=== PATIENT | male | born 1960 | race Caucasian/White ===

== ENCOUNTER 2024-10-19 16:27 | Inpatient (IN) | payer MEDICARE, SELFPAY ==
[2024-10-17 12:07] VITALS: BP 152/94
[2024-10-17 12:30] LABS: % Basophils 0.2 % (0-2); % Eosinophils 0.1 % (0-6); % Immature Granulocytes 0.3 % (0-0.5); % Lymphocytes 5.9 % (20.5-51.1); % Monocytes 5.1 % (1.7-9.3); % Neutrophils 88.4 % (42.2-75.2); Absolute Lymphocytes 0.5 10^3/uL (1.2-3.4); Absolute Monocytes 0.5 10^3/uL (0.1-0.6); Hematocrit 47.5 % (39.0-52.0); Hemoglobin 16.4 g/dL (13.0-18.0); Mean Corp Hgb Conc. 34.5 g/dL (33.0-37.0); Mean Corpuscular Volume 83.9 fL (80.0-94.0); Mean Platelet Volume 10.4 fL (7.4-10.4); Nucleated Red Blood Cells % 0 % (-); Platelet Count 306 10^3/uL (130-400); Red Blood Cell Count 5.66 10^6/uL (4.70-6.10); Red Cell Dist. Width 14.4 % (11.5-14.5); White Blood Cell Count 9.1 10^3/uL (4.8-10.8)
[2024-10-17 12:49] LABS: ALT (SGPT) 37 U/L (0-50); AST (SGOT) 38 U/L (17-59); Albumin 4.6 g/dl (3.5-5.0); Alkaline Phosphatase 82 U/L (38-126); Blood Urea Nitrogen 22 mg/dl (9-20); Calcium 8.8 mg/dl (8.4-10.2); Carbon Dioxide 15 mmol/L (22-30); Chloride 103 mmol/L (98-107); Glucose 164 mg/dl (70-99); Lipase 143 U/L (23-300); Potassium 3.9 mmol/L (3.5-5.1); Sodium 136 mmol/L (135-145); Total Protein 6.8 g/dl (6.3-8.2); eGFR > 60.00
--- NOTE | 2024-10-17 13:41 | ED.GENMED ---
History of Present Illness
<Colleen Flores PA-C - Last Filed: 10/17/24 17:41>
General
Chief Complaint: Abdominal Pain
Source: patient
Exam Limitations: none
Time Seen by Provider: 10/17/24 13:33
Nursing documentation reviewed up to this point in time: agreed with
History of Present Illness
History of Present Illness:
64-year-old male with a past medical history of diabetes, hypothyroid presents emergency department today with diffuse abdominal pain for the past 3 days. Patient reports that when it started 3 days ago, patient states that he had pain and so
severe he is never had anything like it before. He also had associated nausea and vomiting. He has had no fevers or chills. He has no past surgical abdominal history. He has specks of blood in his vomit yesterday. He states that sometimes the
pain will radiate into the chest he describes his pain as a heartburn. He is able to tolerate oral intake. Of note, he went to [place] for the symptoms and they did a CAT scan of the belly which was negative. They also ángel blood cultures which
came back positive and he was called back and to the hospital yesterday and he got blood redrawn and then was sent home again. Patient has not had any fevers or chills. He has had no diarrhea. He is a diabetic.
Review of Systems
<Colleen Flores PA-C - Last Filed: 10/17/24 17:41>
Review of Systems
All Other Systems: ROS reviewed and negative except as documented in HPI and ROS
Phy Exam
<Colleen Flores PA-C - Last Filed: 10/17/24 17:41>
Physical Exam
Physical Exam:
General: Patient appears uncomfortable secondary to pain
Skin: Warm and dry, no rashes or lesions
Head: Normocephalic, atraumatic
Eyes: Sclera non-icteric. EOMs intact. PERRLA.
Cardiac: Regular rate and rhythm, no murmurs
Peripheral Vascular: No lower extremity swelling or edema
Pulm: Normal respiratory effort, no wheezes, rales, or rhonchi
Abdomen: No abdominal tenderness to palpation, no palpable masses, no guarding
Neuro: CN II-XII intact, no focal neurologic deficits.
Psychiatric: Appropriate mood and affect.
Course
<Colleen Flores PA-C - Last Filed: 10/17/24 17:41>
Orders/Labs/Results
Orders:
Orders
10/17/24 12:17
Complete Blood Count/With Diff Urgent
Comprehensive Metabolic Panel Urgent
Lipase Urgent
10/17/24 13:57
CT Abd/pelvis W Iv Cont Urgent
Comment:
Reason For Exam: epigastric abdominal pain
0.9% Sodium Chloride 1000 ml [Nss] 1,000 ml IV BOLUS
Ketorolac [Toradol] 15 mg IV NOW STA
Ondansetron Injectable [Zofran] 4 mg IV NOW STA
10/17/24 13:58
Electrocardiogram (*1) Urgent
Reason for Study: Chest Pain
EKG- Treatment ONCE
10/17/24 14:25
Blood Culture Q30M
LUCY Source: Blood/Venous
Specimen Description:
Blood Culture Q30M
LUCY Source: Blood/Venous
Specimen Description:
10/17/24 14:29
Lactic Acid Urgent
Troponin I Urgent
Urinalysis Reflex To Culture Urgent
Date Specimen was Collected: 10/17/24
Time Specimen was Collected: 14:07
10/17/24 16:43
Admit/Transfer Patient As Directed
Co-Sign Provider:
Level of Care: Observation services
Assign to:: Medical/Surgical
Physician / Group: estela
Diagnosis: abdominal pain
PRN Pain Medication Management As Directed
May give lesser potent ordered pain med per pt: Yes
preference::
Protocol:: Medication orders for pain may be administered in a
manner that supports deferring to patient preference
when the pt is:
- Requesting an ordered lesser potent pain medication.
Least to most potent pain medications are defined
as: acetaminophen < NSAID < tramadol < opioids
(morphine, oxycodone, hydromorphone).
- Requesting a lesser dose of the same medication IF
ORDERED.
- Requesting a less intrusive route of administration
if both routes are prescribed by the provider (PO <
IV).
10/17/24 16:44
Code Status As Directed
Resuscitation Status: Full Code
10/17/24 17:[address] Non Medication Order As Directed
Physician Order: please complete med rec. thanks.
Above order entered?: Yes
10/17/24 17:21
HYDROmorphone [Dilaudid] 1 mg IV Q4HPRN PRN
10/17/24 17:23
Sodium Bicarbonate 50 meq IV NOW STA
Abnormal Lab Results
10/17/24 10/17/24
12:17 14:29
Absolute Neuts (auto) 8.0 H 10^3/uL
(1.4-6.5)
Absolute Lymphs (auto) 0.5 L 10^3/uL
(1.2-3.4)
Neutrophils % 88.4 H %
(42.2-75.2)
Lymphocytes % 5.9 L %
(20.5-51.1)
Carbon Dioxide 15 L mmol/L
(22-30)
BUN 22 H mg/dl
(9-20)
Glucose 164 H mg/dl
(70-99)
Urine Ketones 3+ A
(Negative)
Urine Glucose 3+ A
(Negative)
10/17/24 12:17
10/17/24 12:17
Vital Signs
Initial and Last Documented VS:
Initial Vital Signs
Temp Pulse Resp BP Pulse Ox
97.6 F 82 18 152/94 100
10/17/24 12:07 10/17/24 12:07 10/17/24 12:07 10/17/24 12:07 10/17/24 12:07
Last Documented Vital Signs
Temp Pulse Resp BP Pulse Ox
97.6 F 72 16 112/68 98
10/17/24 12:07 10/17/24 17:32 10/17/24 17:32 10/17/24 17:32 10/17/24 17:32
<Vielka Shell MD - Last Filed: 10/17/24 14:16>
Orders/Labs/Results
Orders:
Orders
10/17/24 12:17
Complete Blood Count/With Diff Urgent
Comprehensive Metabolic Panel Urgent
Lipase Urgent
10/17/24 13:57
CT Abd/pelvis W Iv Cont Urgent
Comment:
Reason For Exam: epigastric abdominal pain
0.9% Sodium Chloride 1000 ml [Nss] 1,000 ml IV BOLUS
Ketorolac [Toradol] 15 mg IV NOW STA
Ondansetron Injectable [Zofran] 4 mg IV NOW STA
10/17/24 13:58
Electrocardiogram (*1) Urgent
Reason for Study: Chest Pain
EKG- Treatment ONCE
10/17/24 14:25
Blood Culture Q30M
LUCY Source: Blood/Venous
Specimen Description:
Blood Culture Q30M
LUCY Source: Blood/Venous
Specimen Description:
10/17/24 14:29
Lactic Acid Urgent
Troponin I Urgent
Urinalysis Reflex To Culture Urgent
Date Specimen was Collected: 10/17/24
Time Specimen was Collected: 14:07
10/17/24 16:43
Admit/Transfer Patient As Directed
Co-Sign Provider:
Level of Care: Observation services
Assign to:: Medical/Surgical
Physician / Group: estela
Diagnosis: abdominal pain
PRN Pain Medication Management As Directed
May give lesser potent ordered pain med per pt: Yes
preference::
Protocol:: Medication orders for pain may be administered in a
manner that supports deferring to patient preference
when the pt is:
- Requesting an ordered lesser potent pain medication.
Least to most potent pain medications are defined
as: acetaminophen < NSAID < tramadol < opioids
(morphine, oxycodone, hydromorphone).
- Requesting a lesser dose of the same medication IF
ORDERED.
- Requesting a less intrusive route of administration
if both routes are prescribed by the provider (PO <
IV).
10/17/24 16:44
Code Status As Directed
Resuscitation Status: Full Code
10/17/24 17:[address] Non Medication Order As Directed
Physician Order: please complete med rec. thanks.
Above order entered?: Yes
10/17/24 17:21
HYDROmorphone [Dilaudid] 1 mg IV Q4HPRN PRN
10/17/24 17:23
Sodium Bicarbonate 50 meq IV NOW STA
Abnormal Lab Results
10/17/24 10/17/24
12:17 14:29
Absolute Neuts (auto) 8.0 H 10^3/uL
(1.4-6.5)
Absolute Lymphs (auto) 0.5 L 10^3/uL
(1.2-3.4)
Neutrophils % 88.4 H %
(42.2-75.2)
Lymphocytes % 5.9 L %
(20.5-51.1)
Carbon Dioxide 15 L mmol/L
(22-30)
BUN 22 H mg/dl
(9-20)
Glucose 164 H mg/dl
(70-99)
Urine Ketones 3+ A
(Negative)
Urine Glucose 3+ A
(Negative)
10/17/24 12:17
10/17/24 12:17
Vital Signs
Initial and Last Documented VS:
Initial Vital Signs
Temp Pulse Resp BP Pulse Ox
97.6 F 82 18 152/94 100
10/17/24 12:07 10/17/24 12:07 10/17/24 12:07 10/17/24 12:07 10/17/24 12:07
Last Documented Vital Signs
Temp Pulse Resp BP Pulse Ox
97.6 F 72 16 112/68 98
10/17/24 12:07 10/17/24 17:32 10/17/24 17:32 10/17/24 17:32 10/17/24 17:32
<Colleen Flores PA-C - Last Filed: 10/17/24 17:41>
MDM/Problems Addressed
Differential Diagnosis Includes:
see below
MDM/Problems Addressed:
NUMBER AND COMPLEXITY OF PROBLEMS ADDRESSED AT THE ENCOUNTER
� Chronic conditions affecting care: Diabetes, hypothyroidism
� Acute Exacerbation and/or Progression of Chronic Illness:
� Differential Diagnosis includes: Mesenteric ischemia, ischemic colitis, gastroenteritis, gastritis, DKA, starvation ketosis, ACS
AMOUNT AND/OR COMPLEXITY OF DATA TO BE REVIEWED AND ANALYZED
� I performed an independent evaluation of and my interpretation is:
EKG:
CT:
Laboratory Studies: Anion gap metabolic acidosis noted, no leukocytosis, elevated glucose
Other:
� Review of other/old records: No previous records in [facility] to review, no discharge summaries to review
� Clinical information was obtained by an independent historian:
� Prescriptions/Medications Considered but not given:
� Further testing considered but not performed:
RISK OF COMPLICATIONS AND/OR MORBIDITY OR MORTALITY OF PATIENT MANAGEMENT
� Social determinants of health affecting care: none
� Discussion with other providers: ER attending
� Escalation of care including admission/observation vs risk of discharge considered:
64-year-old male with past medical history of diabetes, hypothyroidism presents emergency department today with concerns of abdominal pain and nausea over the past 3 days. Emergently present to [place]. He had normal CT but did have questionable
positive blood cultures and was called back to the hospital and had lab work redrawn but he was sent home and states that he is currently waiting for the results. Here today he has no fever, he has pain does. Portion to physical exam findings with
a soft abdomen but he has no respecters for mesenteric ischemia or ischemic colitis. Lab work is notable for metabolic acidosis, will assess for lactic acidosis versus starvation ketosis. Will be given fluids and treated for his pain and nausea.
CT scan reveals 1.3 cm round focus in the left adrenal gland as well as a 1.3 cm mass in the lower lobe of the kidney which most likely presents a cyst but may be a small renal neoplasm, no acute findings however. In light of questionable blood
cultures and acidosis, will admit for pain control and observation.
<Colleen Flores PA-C - Last Filed: 10/17/24 17:41>
*Critical Care Note
Total Time (30-74mins, 75-104mins- exclusive of procedures): Not Applicable
ED Attending Note
<Colleen Flores PA-C - Last Filed: 10/17/24 17:41>
-
Portions of this chart may have been created with voice recognition software.� Occasional wrong word or��sound alike� substitutions may have occurred due to the inherent limitations of voice recognition software.
<Vielka Shell MD - Last Filed: 10/17/24 14:16>
ED Attending Note
Patient seen and examined by attending physician: Yes
I performed the substantive portion of visit, reviewed & personally made and approve the management plan that is documented in note by myself or TAYLOR.: Yes
ED Attending Note:
I have seen and evaluated the patient with a [id number] encounter. I have spoken to the [PA] and involved in the medical history, the physical exam, medical decision making.
Evaluation and management service: agree unless noted differently below.
Results interpretation: agree unless noted differently below.
Patient is a 64-year-old male with history of diabetes, hypothyroidism presenting to the emergency department 3 days of nausea vomiting and abdominal pain. Patient states that he went to an outside hospital had a blood work and CT scan and was
diagnosed with a stomach virus. He was discharged but then called back later as his blood culture was positive. They stated that they were unsure if it was a contaminant or truly positive so he had repeat cultures drawn and patient left. Patient
is presenting today she has had worsening nausea vomiting and ongoing abdominal pain. No diarrhea. No fevers or chills. He does states that sometimes the pain in his abdomen radiates up to his chest. No shortness of breath. No leg swelling or
hemoptysis. No sick contacts travel or antibiotics. On my exam patient is a appearing uncomfortable. He does have dry oral mucosa. His abdomen is diffusely tender but is not distended. Differential consists of viral gastritis versus metabolic
derangement or atypical ACS. Blood work prior to evaluation does show anion gap acidosis. Will add on lactate and obtain urine to evaluate ketones. Will also obtain a troponin and EKG for ACS workup. Will repeat cultures. Patient will need
admission for observation
Discharge Plan
Departure
Patient Disposition: Admit
Date of Disposition: 10/17/24
Time of Disposition: 16:07
Admit to: Med/Surg
Presentation/result/management discussed w/ accepting MD/DO: Hospitalist
Condition: Fair
Discharge Problem:
Abdominal pain, Hx of blood culture
Interventions
Interventions:
*Risk Screen - Suicide Last Done: 10/17/24 12:07
*General Assessment Last Done: 10/17/24 12:07
*Neglect/Abuse Screening Last Done: 10/17/24 12:07
ED- Fall Risk Assessment Last Done: 10/17/24 14:39
QY-Mdiptp-Eaeuuhlypc Assessment Last Done: 10/17/24 14:39
[2024-10-17] MEDS: TORADOL 15 MG IV (14:16)
[2024-10-17] MEDS: NSS 1000 IV ×2 (14:17→22:37)
[2024-10-17] MEDS: ZOFRAN 4 MG IV (14:17)
[2024-10-17 14:43] LABS: Urine Albumin Negative (Neg - Trace); Urine Bilirubin Negative (Negative); Urine Character Clear (Clear); Urine Color Yellow; Urine Glucose 3+ (Negative); Urine Ketone 3+ (Negative); Urine Leukocyte Negative (Negative); Urine Nitrite Negative (Negative); Urine Occult Blood Negative (Negative); Urine Urobilinogen Negative (Neg - 1+)
[2024-10-17 14:55] LABS: Lactic Acid 1.4 mmol/L (0.7-2.0)
[2024-10-17 15:06] LABS: Troponin I < 0.012 ng/ml
--- NOTE | 2024-10-17 16:13 | HPS.HSE ---
Family Physician
-
Family Physician: Flaquito Urbano
Chief Complaint
-
Abdominal pain associate with nausea vomiting
History of Present Illness
64-year-old male with a past medical history of diabetes, hypothyroid presents emergency department today with diffuse abdominal pain since . Patient was evaluated at [facility] for abdominal pain and vomiting. Patient stated, the
pain is lower mid abdominal pain. He had multiple episodes of vomiting on with specks of blood in the vomit. Patient was discharged from [place] on antiemetics. Antiemetics helped him yesterday. Today he took antiemetic with no relief
in his symptoms. Patient complaining of continued abdominal pain with dry heaves. He has not been eating. Denied any diarrhea or constipation. Patient denied fever, chills, chest pain, short of breath. Patient denied headache, dizzy or syncope.
Patient denied dysuria hematuria.
He was called in from [place] with positive blood cultures. He went back yesterday to [place] for repeat blood work. Repeat blood cultures are pending.
He is admitting for further management. Blood cultures were drawn in ER. Patient received a dose of normal saline, Toradol, Zofran in ER
Admitting for further management
Medical History
Past Medical History
Past Medical History: Reports Other
Additional Past Medical History:
Type 2 diabetes
Hyperlipidemia
GERD
Past Surgical History: Reports None
Social History
Tobacco: Non-smoker
Drug: None
Personal: Single
Living: Alone
Family History
Family History: Not pertinent
Allergies / Home Medications
Allergies reflects when Allergies were last updated in [employer].
Home Medications with original date entered in [employer]
Allergy/Medication List:
Allergies
Allergy/AdvReac Type Severity Reaction Status Date / Time
No Known Allergies Allergy Unverified 10/17/24 12:11
Review of Systems
-
Constitutional: Reports No Symptoms
EENT: Reports No Symptoms
Respiratory: Reports No Symptoms
Cardiac: Reports No Symptoms
Abdomen/GI: Reports Abdominal Pain, Nausea and Vomiting
: Reports No Symptoms
Musculoskeletal: Reports No Symptoms
Skin: Reports No Symptoms
Neurological: Reports No Symptoms
Endocrine: Reports No Symptoms
Hematologic/Lymphatic: Reports No Symptoms
Psych: Reports No Symptoms
Physical Exam
Vital Signs
Vital Signs
Temp Pulse Resp BP Pulse Ox
97.6 F 82 18 152/94 100
10/17/24 12:07 10/17/24 12:07 10/17/24 12:07 10/17/24 12:07 10/17/24 12:07
Physical Exam
General: Well Developed, Well Nourished and No Apparent Distress
HEENT: NormoCephalic, Moist mucous membranes and Atraumatic
Respiratory: Clear
Cardiac: S1/S2 and Regular Rhythm; No Murmur or Rub
GI: Soft, Non Tender, Non Distended and Normal Bowel Sounds; No Organomegaly
Rectal: Deferred by Provider
Musculoskeletal: No Clubbing, No Cyanosis and No Edema
Skin: No Rash
Neuro: Nonfocal/grossly intact
Laboratory Results
-
10/17/24 12:17
10/17/24 12:17
Laboratory Results
Lactic Acid 1.4 mmol/L (0.7-2.0) 10/17/24 14:29
Total Bilirubin 1.0 mg/dl (0.2-1.3) 10/17/24 12:17
AST 38 U/L (17-59) 10/17/24 12:17
ALT 37 U/L (0-50) 10/17/24 12:17
Alkaline Phosphatase 82 U/L (38-126) 10/17/24 12:17
Troponin I < 0.012 ng/ml 10/17/24 14:29
Lipase 143 U/L (23-300) 10/17/24 12:17
Data Reviewed
-
CT Scan: Report Reviewed by me
Lab Data: Labs Reviewed by me
Impression/Plan
-
# Abdominal pain likely gastroparesis vs gastritis
-CT abdomen pelvis with impression of 1.3 cm mass arising from the left adrenal gland, which very likely represents an adrenal adenoma.1.3 cm mass arising from the posterolateral lower pole the left kidney, density measurement suggesting that this
is most likely a hyperdense cyst. Small renal cell neoplasm is not excluded.small fat-containing inguinal hernias bilaterally, with no evidence for bowel herniation.
-IV Reglan as needed for nausea vomiting
-Clear liquid diet, advance as tolerated
-Dilaudid prn for pain
-GI consulted
#possible Bacteremia
-Patient afebrile with normal WBCs
-Repeat blood cultures
-defer abx, until cultures resulted.
# Anion gap metabolic acidosis
-CO2 15, anion gap 18
-Normal saline continued
-Monitor BMP
# Hypothyroidism
-On levothyroxine as outpatient
# Type 2 diabetes
-Sliding scale
-Patient on Januvia, glipizide, metformin and Jardiance
-Does not remember the dosage of medications
# Hyperlipidemia
-on Zocor and Vascepa at home.
# GERD
-On PPI
# DVT prophylaxis
-Lovenox subcu
#CODE STATUS
-Full code
please resume meds, once med rec complete.
--- NOTE | 2024-10-17 17:28 | W.PN.UPDATE ---
Update Note
Progress Note Update
This is an addendum to the H&P written by Kylie Jc on 10/17/2024. Patient seen and examined independently with RAIL BENDER.
64-year-old male past medical history of diabetes, hypothyroidism, presenting with severe abdominal pressure ongoing for the past 4 days associate with nausea and vomiting with some specks of blood yesterday. Pain described as pressure and spasm
without alleviating or exacerbating factors. He went to [facility] and had CT scan of the abdomen pelvis which was negative. Blood cultures were drawn and he was called back to the hospital yesterday for positive blood cultures although
further details unknown.
He had pain like this in February and was hospitalized at [place] no cause could be found at that time and pain spontaneously improved.
He was discharged on antiemetic.
Patient without signs or symptoms of bacteremia.
Labs unremarkable apart from metabolic acidosis. CT abdomen pelvis shows adrenal adenoma left adrenal gland, left kidney mass likely hyper dense cyst.
Unclear diagnosis possibly gastroenteritis versus gastroparesis. Positive blood culture could be contaminant.
Continue IV fluids. Bicarb push given. Rechecking blood cultures. Hold off antibiotics. Protonix 40 daily. IV Dilaudid for pain as needed. Reglan as needed. Clear liquid diet. Consider GI if no further improvement.
[2024-10-17 17:32] VITALS: BP 112/68
[2024-10-17] MEDS: DILAUDID 1 MG IV ×2 (17:48→22:50)
[2024-10-17] MEDS: SODIUM BICARBONATE 50 MEQ IV (18:35)
[2024-10-17 21:17] VITALS: BP 130/76; BMI 29.2
[2024-10-17 21:26] LABS: Glucose - Point of Care 102 mg/dl (70-99)
[2024-10-17] MEDS: REGLAN 10 MG IV (22:31)
[2024-10-17] MEDS: PROTONIX IV 40 MG IV (22:37)
[2024-10-17] MEDS: NSS (PRESERVATIVE FREE) 10 ML IV (22:37)
--- NOTE | 2024-10-17 22:50 | PTCARENOTE ---
Pt arrived to 3W from ED via stretcher. Pt able to ambulate into room. AOx3, VSS. Med rec unable to be completed as pt states he does not know his doses. Pt oriented to unit and call bedoya within reach.
[2024-10-17 23:10] VITALS: BP 150/82
[2024-10-18 07:46] VITALS: BP 131/75
[2024-10-18 07:54] LABS: Glucose - Point of Care 96 mg/dl (70-99)
[2024-10-18 08:00] LABS: Glycohemoglobin (HgbA1c) 6.5 % (4.0-5.6)
[2024-10-18] MEDS: NOVOLOG FLEXPEN-LOW RESISTANCE SC ×3 (08:17→21:42)
[2024-10-18] MEDS: NSS (PRESERVATIVE FREE) 10 ML IV ×2 (08:25→20:27)
[2024-10-18] MEDS: PROTONIX IV 40 MG IV ×2 (08:29→20:27)
[2024-10-18] MEDS: DILAUDID 1 MG IV ×2 (08:36→20:31)
[2024-10-18] MEDS: NSS 1000 IV (08:49)
[2024-10-18 09:33] LABS: Blood Urea Nitrogen 14 mg/dl (9-20); Calcium 7.8 mg/dl (8.4-10.2); Carbon Dioxide 24 mmol/L (22-30); Chloride 103 mmol/L (98-107); Estimated Creatinine Clearance > 125 ml/min; Glucose 88 mg/dl (70-99); Potassium 3.3 mmol/L (3.5-5.1); Sodium 134 mmol/L (135-145); eGFR > 60.00
--- NOTE | 2024-10-18 09:37 | W.PN.HOSP.TC ---
Addendum entered and electronically signed by Carlos Manuel Taylor MD 10/18/24 12:23:
TSH suppressed, decreased Synthroid - repeat TSH in 2-3 weeks with PCP as outpatient
Addendum entered and electronically signed by Carlos Manuel Taylor MD 10/18/24 10:33:
WIll cancel gastric emptying study as per GI
Original Note:
Today's Communication/Plan
-
see PN
Assessment / Plan
Assessment / Plan
64yo M with PMHx of DM, hypothyroidism, GERD, HLD, ASCVD came with 4 days of nausea with dull pulsatile cramping diffuse abdominal pain. He was seen in [place] on 10/15/24 for it and was told that he has gastroenteritis and sent home, later called
back for positive Bcx, had Bcx repeated and sent hoem again. Symptoms persisted so he came to . No diarrhea but stool is small amounts and loose.
A/P:
#Abdominal pain
#Fatty pancreas
Appendix normal
Lipase WNL
LFT WNL
Symptomatology of gastroenteritis
Stool studies
GI consult
PPI
hold Metformin, semaglutide - however no recent change in DM meds
Gastric emptying study
Reglan
Pain mgmt
#HAGMA
2/2 poor oral intake
cont IVF
#L adrenal adenoma
1.3cm
Outpatient w/u for hormonal production by PCP advised
CT abd/pelvis f/u in 1 year with PCP
#L kidney mass 1.3cm
Possible cyst, radiologist recommended US - ordered
#Hx of possible bacteremia in [place]
repeat Bcx
no leukocytosis
request records
#DJD
#8th rib old Fx
no mgmt needed
Tylenol and PT
#DM type 2 with neuropathy
Accuchecks, Insulin SS, DM diet
HgbA1c 6.5%
hold oral antiglycemics
#Hypothyroidism
Synthroid dose changed 1 mo ago - repeat TSH
cont meds
#ASCVD
cont ASA
DVT ppx lovenox
Full code
I have spent at least 58min reviewing chart, test results, communication to consultants and direct patient care
Anticipated Discharge: 24 - 48 hours
Subjective/Interval History
-
Date of Service: October 18, 2024
Objective Data
-
Labs:
Laboratory Results
10/18/24
05:40
Sodium 134 L
Potassium 3.3 L
Chloride 103
Carbon Dioxide 24
BUN 14
Creatinine 0.7
Glucose 88
Calcium 7.8 L
Vital Signs:
Vital Signs
Temp Pulse Resp BP Pulse Ox
98.2 F 65 17 131/75 97
10/18/24 07:46 10/18/24 07:46 10/18/24 07:46 10/18/24 07:46 10/18/24 07:46
I&O
10/17/24 10/18/24 10/19/24
06:59 06:59 06:59
Intake Total 240 / 240
Balance 240 / 240
Review of Systems
-
History Source: Patient
All other systems: Reviewed and negative
Abdomen/GI: Reports Abdominal Pain and Nausea
Physical Exam
-
General: Appears in Distress
HEENT: Normocephalic
Respiratory: Clear to Auscultation
Cardiac: Regular Rhythm
GI: Soft, Nontender, Nondistended and Normal Bowel Sounds
Musculoskeletal: No Clubbing, No Cyanosis and No Edema
Neuro: Awake, Alert, Oriented and AO x 3
Psych: Calm
--- NOTE | 2024-10-18 09:42 | CM ---
CM reviewed chart. Pt arrived from home w/complaints of N/V x 4days. Workup in progress, bcx pending, GI consulted. Pt has no skilled home care needs noted at this time. Please consult CM/SW should pts dc needs change. Family to transport-pt to
arrange independently.
CM/SW will continue to follow to ensure a safe and timely dc.
Discussed IMM verbally as pt was not feeling well and MD entered room.
--- NOTE | 2024-10-18 10:00 | CON.GI ---
Consultation
-
Date/Time Consultation Requested: 10/18/2024, 09:30
Date/Time Consultation Performed: 10/18/2024, 10:00 AM
Requesting Provider: Dr. Carlos Manuel Taylor
Performing Provider: Dr. Viktor Hanson
Reason for Consultation: Abdominal pain, nausea/vomiting
Medical History
Chief Complaint / HPI
Chief Complaint: Abdominal pain associated with nausea vomiting
History of Present Illness:
Mr. Hoang is a 64 y.o male with past medical history of HTN, HLD, DM, hypothyroidism, GERD and recent hospitalization at [facility] for abdominal pain and nausea/vomiting who re-presented to the ED with recurrent abdominal discomfort,
nausea/vomiting and concern for recent positive blood culture as well. Gastroenterology has been consulted for further evaluation and management.
Patient states his symptoms started four-five days ago (around ) with significant upper abdominal pain along with NBNB emesis. Denies any chronicity of symptoms and states he was in his USOH prior to this. No recent or new changes in his
medications. Had multiple episodes of nausea/vomiting and looser stools. He initially went to [facility] ED where he had a CT scan which was reportedly unrevealing and blood cultures were negative. Was prescribed anti-emetics given supsected
gastroenteritis which seemed to help but did note ongoing persistent symptoms at home with few specks of blood in his vomit. Denies any large volume hematemesis or melena and/or bloody stools. Otherwise, no other NSAID use or significant alcohol
use. He is on Aspirin 81 mg but no other antiplatelets or anticoagulants. Denies any other changes in bowel habits, looser stools or diarrhea. He has been on his Rybelsus for about a year without any chronic nausea/vomiting. States he is fairly
compliant with his medications for his diabetes. Doesn't recall his last a1c. Notes intentional weight loss since stating semaglutide about 9-10 months ago. Notes that he came back to the ED yesterday as he received a call from the hospital given
concern for positive blood cultures and was advised to come back to the hospital where he re-presented here at [place] ED. Denies any other fevers, chills, night sweats or other constitutional symptoms. He has never had a prior EGD or a
colonoscopy.
In the ED, patient was afebrile and HD-stable. Labs notable for BUN 22 and Data Abstractor 0.9. LFTs wnl and troponin (-). Lipase wnl (143). UA with 3+ ketones and 3+ glucose. CBC without leukocytosis with WBC 9.1, Hgb 16.[address] Abd/pelvis w/ IV
contrast revealed an incidental mass arising from the L adrenal gland (possible hyperdense cyst), small fat-containing inguinal hernias without obstruction, and fatty infiltration of the pancreas without any evidence of pancreatitis, duct dilatation
or focal pancreatic lesion. Otherwise, rest of the bowel was normal without any findings to suggest diverticulitis or obstruction.
In the ED, he was given IVF, anti-emetics and IV PPI and admitted to medicine for further management.
Past Medical History
Past Medical History: Other (DM II, HLD, GERD, HTN)
Past Surgical History: None
Social History
Tobacco: Non-Smoker
Alcohol: None
Drug: None
Personal: Single
Family History
Family History: Reviewed & Not Pertinent
Allergies / Home Medications
Allergy/AdvReac Type Severity Reaction Status Date / Time
No Known Allergies Allergy Unverified 10/17/24 12:11
�Medication �Instructions �Recorded
Januvia 100 mg PO 10/17/24
Jardiance 25 mg PO 10/17/24
Rybelsus 14 mg PO AMHS 10/17/24
Rybelsus 14 mg PO DAILY 10/17/24
Veasepa 1 dose 10/17/24
aspirin 81 mg tablet,delayed 1 mg 10/17/24
release
glipizide 1 dose 10/17/24
levothyroxine 0.175 mg 10/17/24
metformin 500 mg PO 4XD 10/17/24
omeprazole 40 mg capsule,delayed 40 mg PO DAILY 10/17/24
release
pioglitazone 45 mg tablet 45 mg PO 10/17/24
simvastatin 10 mg PO DAILY 10/17/24
Review of Systems
-
All other systems: A 12 pt ROS was Negative except as stated above in HPI
Vital Signs
Temp Pulse Resp BP Pulse Ox
98.2 F 65 17 131/75 97
10/18/24 07:46 10/18/24 07:46 10/18/24 07:46 10/18/24 07:46 10/18/24 07:46
Physical Exam
Exam
General: Well Developed, Well Nourished, No Apparent Distress and Comfortable
HEENT: Normocephalic and Anicteric
Respiratory: Clear and Non Labored Respirations
Cardiac: Regular Rhythm
GI: Soft, Non Tender and Non Distended
Skin: Warm
Neuro: AO x 3 and Nonfocal/Grossly Intact
Psych: Calm
Results
WBC 9.1 10^3/uL (4.8-10.8) 10/17/24 12:17
Hgb 16.4 g/dL (13.0-18.0) 10/17/24 12:17
Hct 47.5 % (39.0-52.0) 10/17/24 12:17
MCV 83.9 fL (80.0-94.0) 10/17/24 12:17
Plt Count 306 10^3/uL (130-400) 10/17/24 12:17
Absolute Neuts (auto) 8.0 10^3/uL (1.4-6.5) H 10/17/24 12:17
Sodium 134 mmol/L (135-145) L 10/18/24 05:40
Potassium 3.3 mmol/L (3.5-5.1) L 10/18/24 05:40
Chloride 103 mmol/L (98-107) 10/18/24 05:40
Carbon Dioxide 24 mmol/L (22-30) 10/18/24 05:40
BUN 14 mg/dl (9-20) 10/18/24 05:40
Creatinine 0.7 mg/dL (0.7-1.3) 10/18/24 05:40
Calcium 7.8 mg/dl (8.4-10.2) L 10/18/24 05:40
Total Bilirubin 1.0 mg/dl (0.2-1.3) 10/17/24 12:17
AST 38 U/L (17-59) 10/17/24 12:17
ALT 37 U/L (0-50) 10/17/24 12:17
Alkaline Phosphatase 82 U/L (38-126) 10/17/24 12:17
Lipase 143 U/L (23-300) 10/17/24 12:17
Diagnostic Image Results: As detailed above
Prior GI Procedures: No prior EGD or colonoscopy
Assessment / Plan
-
Mr. Hoang is a 64 y.o male with past medical history of HTN, HLD, DM, hypothyroidism, GERD and recent hospitalization at [facility] for abdominal pain and nausea/vomiting who re-presented to the ED with recurrent abdominal discomfort,
nausea/vomiting and concern for recent positive blood culture as well. Gastroenterology has been consulted for further evaluation and management.
#Acute Nausea/Vomiting
#Epigastric Abdominal Pain
#C/f (+) Blood Cultures
#Hx NIDDM II (on GLP-1)
Impression: Patient with presenting with nonbilious, and initially nonbloody emesis over the past 4 to 5 days with associated epigastric abdominal pain without any chronicity of symptoms. Prior CT at OSH ([facility]) was reportedly
unrevealing and represented due to recurrent, worsening symptoms and additional concern for possible positive blood cultures. Found to have electrolyte derangements and HAGMA along with ketones in urine suggestive of dehydration and hypovolemia from
ongoing poor p.o intake. Etiology likely secondary to infectious gastroenteritis given his symptomatology. Repeat CT imaging here without any evidence of pancreatitis, cholecystitis, diverticulitis or other bowel wall thickening or other concern
for obstruction. LFTs within normal limits along with lipase. Although he has risk factors for gastroparesis this is much less likely given that he is without any chronicity of symptoms. Additionally, he is also on a GLP-1 (Rybelsus) however he
has been on this for 9 to 10 months without any chronic nausea or vomiting. Much less likely CVS. Additionally, some concern given his recent positive blood cultures but he is without any other signs or symptoms to suggest sepsis. No prior EGD or
colonoscopy in the past. Would benefit from ongoing supportive care and the previous concern for possible flecks of blood with his emesis likely secondary to a Susan-Gaxiola tear from his nausea/vomiting and without any concern for melena or bloody
stools.
Recommendations:
- Continue CLD
- IVF to maintain euvolemia, replete K > 4.0 and Mg > 2.0
- Repeat CBC to ensure stable Hgb and suspect some degree of hemoconcentration from prior CBC
- IV PPI 40 mg BiD
- Await repeat blood cultures, agree with holding off IV abx
- D/c GES as very low suspicion for gastroparesis as without any prior chronicity of symptoms and if symptoms persist could consider outpatient eval
- Obtain TSH and A1c
- If nausea/vomiting continue to persist and blood cultures are negative, would consider diagnostic EGD to exclude PUD and/or esophagitis given his previous episodes of bloody emesis although likely from MWT
- IV anti-emetics with IV Zofran and IV Reglan, limit opioids if possible
- Avoidance of all NSAIDs
- Follow-up OSH records from [facility]
- Will need outpatient f/u along with a colonoscopy for screening purposes
- Rest of care per primary team
Discussed with primary internal medicine team this AM. GI will continue to follow while inpatient.
Data Reviewed
-
Radiology: Image Personally Visualized and interpreted and Report Reviewed by me
CT Scan: Image Personally Visualized and interpreted and Report Reviewed by me
Old Records: Requested
-
-
Thank you for consultation and allowing me to participate in the patient's care. Please call the member certification manager GI physician during the after hours with any questions or concerns.
[2024-10-18 10:04] LABS: TSH < 0.02 uIU/ml (0.47-4.68)
[2024-10-18 10:22] LABS: Magnesium 2.1 mg/dl (1.6-2.3)
[2024-10-18] MEDS: LR 1000 IV ×2 (11:04→22:00)
[2024-10-18] MEDS: SYNTHROID 175 MCG PO (11:04)
[2024-10-18] MEDS: KCL 40 MEQ PO (11:07)
[2024-10-18] MEDS: ZOFRAN 4 MG IV (11:08)
[2024-10-18 11:19] LABS: Glucose - Point of Care 134 mg/dl (70-99)
[2024-10-18 12:17] LABS: % Basophils 0.2 % (0-2); % Eosinophils 0.3 % (0-6); % Immature Granulocytes 0.2 % (0-0.5); % Lymphocytes 23.1 % (20.5-51.1); % Monocytes 13.7 % (1.7-9.3); % Neutrophils 62.5 % (42.2-75.2); Absolute Lymphocytes 1.4 10^3/uL (1.2-3.4); Absolute Monocytes 0.8 10^3/uL (0.1-0.6); Absolute Neutrophils 3.8 10^3/uL (1.4-6.5); Hematocrit 43.7 % (39.0-52.0); Hemoglobin 14.5 g/dL (13.0-18.0); Mean Corp Hgb Conc. 33.2 g/dL (33.0-37.0); Mean Corpuscular Hgb 29.1 pg (27.0-31.0); Mean Corpuscular Volume 87.8 fL (80.0-94.0); Mean Platelet Volume 10.5 fL (7.4-10.4); Nucleated Red Blood Cells % 0 % (-); Platelet Count 245 10^3/uL (130-400); Red Blood Cell Count 4.98 10^6/uL (4.70-6.10); Red Cell Dist. Width 14.6 % (11.5-14.5); White Blood Cell Count 6.1 10^3/uL (4.8-10.8)
[2024-10-18 12:17] LABS: Free T4 1.62 ng/dl (0.78-2.19)
[2024-10-18] MEDS: REGLAN 10 MG IV ×2 (13:41→20:42)
[2024-10-18 15:00] VITALS: BP 144/70
[2024-10-18 17:43] LABS: Glucose - Point of Care 154 mg/dl (70-99)
--- NOTE | 2024-10-18 17:48 | W.PN.UPDATE ---
Update Note
Progress Note Update
RN messaged about anxiety and RUQ pain, however on bedside assessment patient c/o LUQ pain, started appr 10 min after meals with nausea.
Lactate WNL on admission - doubt ischemic colitis
Patient lost 30lbs over 4 mo but he intentionally dieted
Xanax for anxiety PRN
Abd soft, no RUQ tenderness, not distended
[2024-10-18] MEDS: XANAX 0.25 MG PO (20:27)
[2024-10-18 21:32] LABS: Glucose - Point of Care 95 mg/dl (70-99)
[2024-10-18 23:00] VITALS: BP 124/71
[2024-10-19 04:55] LABS: Glucose - Point of Care 110 mg/dl (70-99)
[2024-10-19 04:59] LABS: % Basophils 0.3 % (0-2); % Eosinophils 0.2 % (0-6); % Immature Granulocytes 0.3 % (0-0.5); % Lymphocytes 32.6 % (20.5-51.1); % Monocytes 14.1 % (1.7-9.3); % Neutrophils 52.5 % (42.2-75.2); Absolute Lymphocytes 1.9 10^3/uL (1.2-3.4); Absolute Monocytes 0.8 10^3/uL (0.1-0.6); Absolute Neutrophils 3.1 10^3/uL (1.4-6.5); Hematocrit 45.9 % (39.0-52.0); Hemoglobin 15.7 g/dL (13.0-18.0); Mean Corp Hgb Conc. 34.2 g/dL (33.0-37.0); Mean Corpuscular Hgb 28.8 pg (27.0-31.0); Mean Corpuscular Volume 84.1 fL (80.0-94.0); Mean Platelet Volume 9.7 fL (7.4-10.4); Nucleated Red Blood Cells % 0 % (-); Platelet Count 255 10^3/uL (130-400); Red Blood Cell Count 5.46 10^6/uL (4.70-6.10); Red Cell Dist. Width 14.3 % (11.5-14.5); White Blood Cell Count 5.8 10^3/uL (4.8-10.8)
[2024-10-19] MEDS: XANAX 0.25 MG PO ×2 (05:16→14:40)
[2024-10-19] MEDS: SYNTHROID 150 MCG PO (05:16)
[2024-10-19] MEDS: REGLAN 10 MG IV ×3 (05:16→20:24)
[2024-10-19 05:18] LABS: ALT (SGPT) 30 U/L (0-50); AST (SGOT) 23 U/L (17-59); Albumin 3.8 g/dl (3.5-5.0); Alkaline Phosphatase 62 U/L (38-126); Blood Urea Nitrogen 9 mg/dl (9-20); Calcium 8.4 mg/dl (8.4-10.2); Carbon Dioxide 24 mmol/L (22-30); Chloride 105 mmol/L (98-107); Estimated Creatinine Clearance 116 ml/min; Glucose 108 mg/dl (70-99); Potassium 3.5 mmol/L (3.5-5.1); Sodium 137 mmol/L (135-145); Total Bilirubin 1.3 mg/dl (0.2-1.3); eGFR > 60.00
[2024-10-19] MEDS: DILAUDID 1 MG IV ×2 (06:02→15:21)
--- NOTE | 2024-10-19 06:20 | W.PN.GI.CBS2 ---
Today's Communication / Plan
-
Nausea/vomiting improving, advance diet as tolerated to low-fat, diabetic diet. Pending infectious r/o (Norovirus, etc). Defer plans for EGD at this time. See rest of care as outlined below.
Assessment / Plan
-
Mr. Hoang is a 64 y.o male with past medical history of HTN, HLD, DM, hypothyroidism, GERD and recent hospitalization at [facility] for abdominal pain and nausea/vomiting who re-presented to the ED with recurrent abdominal discomfort,
nausea/vomiting and concern for recent positive blood culture as well. Gastroenterology has been consulted for further evaluation and management.
#Acute Nausea/Vomiting- Improving
#Epigastric Abdominal Pain
#C/f (+) Blood Cultures
#Hx NIDDM II (on GLP-1)
Impression: Patient with presenting with nonbilious, and initially nonbloody emesis over the past 4 to 5 days with associated epigastric abdominal pain without any chronicity of symptoms. Prior CT at OSH ([facility]) was reportedly
unrevealing and represented due to recurrent, worsening symptoms and additional concern for possible positive blood cultures. Found to have electrolyte derangements and HAGMA along with ketones in urine suggestive of dehydration and hypovolemia from
ongoing poor p.o intake. Etiology likely secondary to infectious gastroenteritis given his symptomatology. Repeat CT imaging here without any evidence of pancreatitis, cholecystitis, diverticulitis or other bowel wall thickening or other concern
for obstruction. LFTs within normal limits along with lipase. Although he has risk factors for gastroparesis this is much less likely given that he is without any chronicity of symptoms. Additionally, he is also on a GLP-1 (Rybelsus) however he
has been on this for 9 to 10 months without any chronic nausea or vomiting. Much less likely CVS. Additionally, some concern given his recent positive blood cultures but he is without any other signs or symptoms to suggest sepsis. No prior EGD or
colonoscopy in the past. Would benefit from ongoing supportive care and the previous concern for possible flecks of blood with his emesis likely secondary to a Susan-Gaxiola tear from his nausea/vomiting and without any concern for melena or bloody
stools.
Recommendations:
- Continue CLD, may advance diet as tolerated to low-fat, diabetic diet
- Replete K > 4.0 and Mg > 2.0
- IV PPI 40 mg BiD
- Blood cultures NG x 24 hrs, agree with holding off IV abx
- Pending Norovirus PCR and stool cultures once able to have a BM
- Discontinued GES as low suspicion for gastroparesis given acuity of symptoms, pending a1c
- Agree with infectious r/o as above. Given that his symptoms appear to be improving will defer plans for EGD given improving symptoms and stable H/h
- IV anti-emetics with IV Zofran and IV Reglan, limit opioids if possible
- Avoidance of all NSAIDs
- Will need outpatient f/u along with a colonoscopy for screening purposes along with consideration of a diagnostic EGD if nausea/vomiting persist
- Rest of care per primary team
GI will continue to follow while inpatient.
Subjective
Subjective
Date of Service: October 19, 2024
- Renal US 10/18: 1.2 cm exophytic cyst of the L kidney without hydronephrosis
- Endorsing LUQ pain yesterday evening after meals with nausea
- AM labs without leukocytosis and normal LFTs
- Otherwise, no acute events overnight
Reports feeling better this AM, hoping to have more solid food. Notes near resolution of upper abdominal pain. Tolerated soup and water ice without difficulty. No loose stools or diarrhea, last BM two days ago. Otherwise, no other fevers or chills.
Objective
Data Reviewed
Laboratory Data:
Laboratory Results
10/19/24 04:47
10/19/24 04:47
Laboratory Results
Magnesium 2.1 mg/dl (1.6-2.3) 10/18/24 05:40
Total Bilirubin 1.3 mg/dl (0.2-1.3) 10/19/24 04:47
AST 23 U/L (17-59) 10/19/24 04:47
ALT 30 U/L (0-50) 10/19/24 04:47
Alkaline Phosphatase 62 U/L (38-126) 10/19/24 04:47
Lipase 143 U/L (23-300) 10/17/24 12:17
Vital Signs and I&O:
Vital Signs
Temp Pulse Resp BP Pulse Ox
98.1 F 64 14 124/71 94
10/18/24 23:00 10/18/24 23:00 10/18/24 23:00 10/18/24 23:00 10/18/24 23:00
I&O
10/17/24 10/18/24 10/19/24
06:59 06:59 06:59
Intake Total 240 / 240 3340 / 3340
Output Total 2300 / 2300
Balance 240 / 240 1040 / 1040
Physical Exam
Physical Exam
HEENT: Anicteric and Moist mucous membranes
Cardiology: Normal Sinus Rhythm
Pulmonary: Other (Normal WOB on room air)
GI: Soft, Non Distended and Non Tender
Extremities: No Edema
Neuro: Non Focal and Other (AAOx3)
[2024-10-19 07:10] VITALS: BP 144/84
[2024-10-19] MEDS: NSS (PRESERVATIVE FREE) 10 ML IV ×2 (07:31→20:17)
[2024-10-19] MEDS: LR 1000 IV (07:31)
[2024-10-19] MEDS: PROTONIX IV 40 MG IV ×2 (07:32→20:17)
[2024-10-19] MEDS: NOVOLOG FLEXPEN-LOW RESISTANCE SC ×2 (07:49→18:57)
[2024-10-19 07:55] LABS: Glucose - Point of Care 146 mg/dl (70-99)
--- NOTE | 2024-10-19 08:38 | W.PN.HOSP.TC ---
Today's Communication/Plan
-
Advance diet as tolerated. GI reeval
Assessment / Plan
Assessment / Plan
Physical exam:
General: Well Developed, Well Nourished and No Apparent Distress
HEENT: Normocephalic, Atraumatic and Moist Mucous Membranes
Respiratory: Clear to Auscultation; Negative Wheezes, Rales or Rhonchi
Cardiac: Regular Rhythm and S1/S2
GI: Soft, Nontender and Nondistended
Musculoskeletal: No Clubbing, No Cyanosis and No Edema
Neuro: Awake, Alert and Oriented
Psych: Calm
A/P:
Recurring abdominal pain nausea and vomiting:
Unclear etiology although suspicion for infectious gastroenteritis. He is on GLP-1 vs Susan-Gaxiola tear vs less likely gastroparesis
GI on consult
On IV Protonix twice a day
Advancing diet per GI to see if he tolerates
If he does not tolerate, plan for scope
Discussed with GI today on 10/19
Discussed with attending RN
Left kidney cyst:
Initial images suspicion for adrenal mass but it turned out to be left renal cyst by ultrasonography
Blood cultures positive in another institution ??contaminant but unknown details:
Blood cultures no growth from 10/17
Remains afebrile and normal WBC
Hypokalemia:
Repleted and trend
Diabetes mellitus type 2:
Hemoglobin A1c 6.5
Holding oral hypoglycemics
Insulin sliding scale
Hypothyroidism:
Continue levothyroxine 150 mcg p.o. daily
Low TSH but Free T4 within normal
DVT prophylaxis:
SCDs
CODE STATUS:
Full code
Anticipated Discharge: 24 - 48 hours
Subjective/Interval History
-
Date of Service: October 19, 2024
Patient was doing well in the morning. Later in the afternoon pt was having increased pain and nausea after his lunch throwing up mucous and dry heaving
Objective Data
-
Labs:
Laboratory Results
10/19/24
04:47
WBC 5.8
Hgb 15.7
Hct 45.9
Plt Count 255
Sodium 137
Potassium 3.5
Chloride 105
Carbon Dioxide 24
BUN 9
Creatinine 0.8
Glucose 108 H
Calcium 8.4
Total Bilirubin 1.3
AST 23
ALT 30
Alkaline Phosphatase 62
Vital Signs:
Vital Signs
Temp Pulse Resp BP Pulse Ox
97.4 F 62 19 144/84 97
10/19/24 07:10 10/19/24 07:10 10/19/24 07:10 10/19/24 07:10 10/19/24 07:10
I&O
10/18/24 10/19/24 10/20/24
06:59 06:59 06:59
Intake Total 240 / 240 3340 / 3340
Output Total 2300 / 2300
Balance 240 / 240 1040 / 1040
[2024-10-19 13:26] LABS: Glucose - Point of Care 168 mg/dl (70-99)
[2024-10-19 15:10] VITALS: BP 146/87
[2024-10-19] MEDS: NOVOLOG FLEXPEN-LOW RESISTANCE 1 UNITS SC (15:20)
[2024-10-19] MEDS: LR IV (18:46)
[2024-10-19 18:50] LABS: Glucose - Point of Care 132 mg/dl (70-99)
[2024-10-19 21:47] LABS: Glucose - Point of Care 117 mg/dl (70-99)
[2024-10-19 23:00] VITALS: BP 126/84
[2024-10-20] MEDS: DILAUDID 1 MG IV ×2 (02:08→21:55)
[2024-10-20] MEDS: SYNTHROID 150 MCG PO (05:17)
--- NOTE | 2024-10-20 05:41 | W.PN.GI.CBS2 ---
Today's Communication / Plan
-
Recommend ongoing conservative care as below. Offered EGD given persistent symptoms although still suspicious for gastroenteritis and no further episodes of prior small volume hematemesis (likely 2/2 MWT). GI will sign-off, please call back with any
questions or concerns.
Assessment / Plan
-
Mr. Hoang is a 64 y.o male with past medical history of HTN, HLD, DM, hypothyroidism, GERD and recent hospitalization at [facility] for abdominal pain and nausea/vomiting who re-presented to the ED with recurrent abdominal discomfort,
nausea/vomiting and concern for recent positive blood culture as well. Gastroenterology has been consulted for further evaluation and management.
#Acute Nausea/Vomiting- Improving
#Epigastric Abdominal Pain
#C/f (+) Blood Cultures
#Hx NIDDM II (on GLP-1)
Impression: Patient with presenting with nonbilious, and initially nonbloody emesis over the past 4 to 5 days with associated epigastric abdominal pain without any chronicity of symptoms. Prior CT at OSH ([facility]) was reportedly
unrevealing and represented due to recurrent, worsening symptoms and additional concern for possible positive blood cultures. Found to have electrolyte derangements and HAGMA along with ketones in urine suggestive of dehydration and hypovolemia from
ongoing poor p.o intake. Etiology likely secondary to infectious gastroenteritis given his symptomatology. Repeat CT imaging here without any evidence of pancreatitis, cholecystitis, diverticulitis or other bowel wall thickening or other concern
for obstruction. LFTs within normal limits along with lipase. Although he has risk factors for gastroparesis this is much less likely given that he is without any chronicity of symptoms. Additionally, he is also on a GLP-1 (Rybelsus) however he
has been on this for 9 to 10 months without any chronic nausea or vomiting. Much less likely CVS. Additionally, some concern given his recent positive blood cultures but he is without any other signs or symptoms to suggest sepsis. No prior EGD or
colonoscopy in the past. Would benefit from ongoing supportive care and the previous concern for possible flecks of blood with his emesis likely secondary to a Susan-Gaxiola tear from his nausea/vomiting and without any concern for melena or bloody
stools.
Tolerating diet although still with ongoing, intermittent nausea/vomiting and post-prandial epigastric discomfort. Offered EGD this AM however patient preferred to hold off on this on 10/20.
Recommendations:
- Diet as tolerated with low-fat, diabetic diet
- Replete K > 4.0 and Mg > 2.0
- Empiric IV PPI 40 mg BiD
- Pending Norovirus PCR and stool cultures once able to have a BM
- Start Miralax 17 gm BiD and senna qhs for bowel regimen if related to constipation
- Discontinued GES as low suspicion for gastroparesis and already on a GLP-1. Has risk factors for delayed emptying, however doubt given overall acuity of symptoms and a1c 6.5%
- Offered EGD this AM / early this afternoon, however patient declined this AM and prefers ongoing conservative measures which is reasonable
- IV anti-emetics with IV Zofran and IV Reglan, limit opioids if possible
- Avoidance of all NSAIDs
- Will need outpatient f/u along with a colonoscopy for screening purposes along with consideration of a diagnostic EGD if nausea/vomiting persist
- Rest of care per primary team
Discussed with primary internal medicine team. GI team will sign-off, please call back with any questions or concerns.
Subjective
Subjective
Date of Service: October 20, 2024
- No acute events overnight
Still endorses intermittent nausea and epigastric discomfort. Offered patient an EGD this AM given his ongoing recurrent symptoms, although still seems consistent with gastroenteritis. Declined EGD this AM and wished to hold off to see how he
tolerated breakfast/lunch. Endorses feeling hungry without any early satiety or fullness after meals. No other fevers/chills or other constitutional symptoms.
Objective
Data Reviewed
Laboratory Data:
Laboratory Results
Magnesium 2.1 mg/dl (1.6-2.3) 10/18/24 05:40
Total Bilirubin 1.3 mg/dl (0.2-1.3) 10/19/24 04:47
AST 23 U/L (17-59) 10/19/24 04:47
ALT 30 U/L (0-50) 10/19/24 04:47
Alkaline Phosphatase 62 U/L (38-126) 10/19/24 04:47
Lipase 143 U/L (23-300) 10/17/24 12:17
Vital Signs and I&O:
Vital Signs
Temp Pulse Resp BP Pulse Ox
98.4 F 67 18 126/84 95
10/19/24 23:00 10/19/24 23:00 10/19/24 23:00 10/19/24 23:00 10/19/24 23:00
I&O
10/18/24 10/19/24 10/20/24
06:59 06:59 06:59
Intake Total 240 / 240 3340 / 3340 960 / 960
Output Total 2300 / 2300 1100 / 1100
Balance 240 / 240 1040 / 1040 -140 / -140
Physical Exam
Physical Exam
HEENT: Anicteric and Moist mucous membranes
Pulmonary: Other (Normal WOB on room air)
GI: Soft, Non Distended and Non Tender
Extremities: No Edema
Neuro: Non Focal
[2024-10-20 06:42] LABS: % Basophils 0.3 % (0-2); % Immature Granulocytes 0.4 % (0-0.5); % Lymphocytes 13.5 % (20.5-51.1); % Monocytes 7.1 % (1.7-9.3); % Neutrophils 78.7 % (42.2-75.2); Absolute Monocytes 0.6 10^3/uL (0.1-0.6); Absolute Neutrophils 6.1 10^3/uL (1.4-6.5); Hemoglobin 16.2 g/dL (13.0-18.0); Mean Corp Hgb Conc. 33.1 g/dL (33.0-37.0); Mean Corpuscular Hgb 28.1 pg (27.0-31.0); Mean Corpuscular Volume 84.9 fL (80.0-94.0); Mean Platelet Volume 10.3 fL (7.4-10.4); Nucleated Red Blood Cells % 0 % (-); Platelet Count 274 10^3/uL (130-400); Red Blood Cell Count 5.77 10^6/uL (4.70-6.10); Red Cell Dist. Width 13.7 % (11.5-14.5); White Blood Cell Count 7.7 10^3/uL (4.8-10.8)
[2024-10-20 07:07] LABS: ALT (SGPT) 28 U/L (0-50); AST (SGOT) 21 U/L (17-59); Albumin 4.2 g/dl (3.5-5.0); Alkaline Phosphatase 66 U/L (38-126); Blood Urea Nitrogen 11 mg/dl (9-20); Calcium 8.6 mg/dl (8.4-10.2); Carbon Dioxide 20 mmol/L (22-30); Chloride 99 mmol/L (98-107); Estimated Creatinine Clearance 116 ml/min; Glucose 139 mg/dl (70-99); Potassium 3.8 mmol/L (3.5-5.1); Sodium 136 mmol/L (135-145); Total Bilirubin 1.5 mg/dl (0.2-1.3); Total Protein 6.4 g/dl (6.3-8.2); eGFR > 60.00
[2024-10-20 07:45] VITALS: BP 129/86
[2024-10-20 07:54] LABS: Glucose - Point of Care 148 mg/dl (70-99)
[2024-10-20] MEDS: PROTONIX IV 40 MG IV ×2 (08:03→20:48)
[2024-10-20] MEDS: NOVOLOG FLEXPEN-LOW RESISTANCE SC ×2 (08:03→12:10)
[2024-10-20] MEDS: NSS (PRESERVATIVE FREE) 10 ML IV ×2 (08:04→20:48)
[2024-10-20] MEDS: ZOFRAN 4 MG IV ×2 (09:12→18:24)
[2024-10-20] MEDS: XANAX 0.25 MG PO ×2 (09:12→18:24)
[2024-10-20] MEDS: TYLENOL PO (09:12)
--- NOTE | 2024-10-20 10:44 | W.PN.HOSP.TC ---
Today's Communication/Plan
-
Advance diet
Assessment / Plan
Assessment / Plan
Physical exam:
General: Well Developed, Well Nourished and No Apparent Distress
HEENT: Normocephalic, Atraumatic and Moist Mucous Membranes
Respiratory: Clear to Auscultation; Negative Wheezes, Rales or Rhonchi
Cardiac: Regular Rhythm and S1/S2
GI: Soft, Nontender and Nondistended
Musculoskeletal: No Clubbing, No Cyanosis and No Edema
Neuro: Awake, Alert and Oriented
Psych: Calm
A/P:
Recurring abdominal pain nausea and vomiting:
Unclear etiology although suspicion for infectious gastroenteritis. He is on GLP-1 vs Susan-Gaxiola tear vs less likely gastroparesis
GI on consult
On IV Protonix twice a day
Advancing diet per GI to see if he tolerates--> yesterday patient did not tolerate but today feels better. Discussed with GI today on 10/20. Patient is not ready to go home today and wants to see how he does with his diet over the next 24 hours.
Left kidney cyst:
Initial images suspicion for adrenal mass but it turned out to be left renal cyst by ultrasonography
Blood cultures positive in another institution ??contaminant but unknown details:
Blood cultures no growth from 10/17
Remains afebrile and normal WBC
Hypokalemia:
Repleted and trend
Diabetes mellitus type 2:
Hemoglobin A1c 6.5
Holding oral hypoglycemics
Insulin sliding scale
Hypothyroidism:
Continue levothyroxine 150 mcg p.o. daily
Low TSH but Free T4 within normal
DVT prophylaxis:
SCDs
CODE STATUS:
Full code
Anticipated Discharge: Within 24 hours
Subjective/Interval History
-
Date of Service: October 20, 2024
Patient feels better today than yesterday but still having some intermittent pain and intermittent nausea and does not feel ready to go home today.
Objective Data
-
Labs:
Laboratory Results
10/20/24
06:04
WBC 7.7
Hgb 16.2
Hct 49.0
Plt Count 274
Sodium 136
Potassium 3.8
Chloride 99
Carbon Dioxide 20 L
BUN 11
Creatinine 0.8
Glucose 139 H
Calcium 8.6
Total Bilirubin 1.5 H
AST 21
ALT 28
Alkaline Phosphatase 66
Vital Signs:
Vital Signs
Temp Pulse Resp BP Pulse Ox
98.0 F 93 17 129/86 96
10/20/24 07:45 10/20/24 07:45 10/20/24 07:45 10/20/24 07:45 10/20/24 07:45
I&O
10/19/24 10/20/24 10/21/24
06:59 06:59 06:59
Intake Total 3340 / 3340 960 / 960
Output Total 2300 / 2300 1100 / 1100
Balance 1040 / 1040 -140 / -140
[2024-10-20] MEDS: MIRALAX 17 GRAMS PO ×2 (11:08→21:55)
[2024-10-20 11:51] LABS: Glucose - Point of Care 113 mg/dl (70-99)
[2024-10-20] MEDS: REGLAN 10 MG IV ×2 (13:33→20:49)
[2024-10-20] MEDS: TYLENOL 650 MG PO ×2 (13:43→18:23)
[2024-10-20] MEDS: MYLICON 80 MG PO ×2 (15:11→18:23)
[2024-10-20 15:46] VITALS: BP 164/90
[2024-10-20 16:47] LABS: Glucose - Point of Care 151 mg/dl (70-99)
[2024-10-20] MEDS: NOVOLOG FLEXPEN-LOW RESISTANCE 1 UNITS SC (16:53)
[2024-10-20 21:46] LABS: Glucose - Point of Care 125 mg/dl (70-99)
[2024-10-20] MEDS: SENOKOT-S 1 TABLET PO (21:55)
[2024-10-20 23:58] VITALS: BP 151/78
[2024-10-21] MEDS: SYNTHROID 150 MCG PO (05:42)
[2024-10-21 07:27] VITALS: BP 132/78
[2024-10-21 07:47] LABS: Glucose - Point of Care 140 mg/dl (70-99)
[2024-10-21] MEDS: NOVOLOG FLEXPEN-LOW RESISTANCE SC ×2 (08:03→11:42)
[2024-10-21] MEDS: MIRALAX 17 GRAMS PO (08:07)
[2024-10-21] MEDS: MYLICON 80 MG PO ×2 (08:07→16:10)
[2024-10-21] MEDS: PROTONIX IV 40 MG IV ×2 (08:08→20:33)
[2024-10-21] MEDS: NSS (PRESERVATIVE FREE) 10 ML IV ×2 (08:08→20:34)
--- NOTE | 2024-10-21 09:08 | W.PN.HOSP.TC ---
Today's Communication/Plan
-
X-ray of the abdomen. Adjust medications.
Assessment / Plan
Assessment / Plan
Physical exam:
General: Well Developed, Well Nourished and No Apparent Distress
HEENT: Normocephalic, Atraumatic and Moist Mucous Membranes
Respiratory: Clear to Auscultation; Negative Wheezes, Rales or Rhonchi
Cardiac: Regular Rhythm and S1/S2
GI: Soft, Nontender and Nondistended
Musculoskeletal: No Clubbing, No Cyanosis and No Edema
Neuro: Awake, Alert and Oriented
Psych: Calm
A/P:
Recurring abdominal pain nausea and vomiting:
Unclear etiology although suspicion for infectious gastroenteritis and postinfectious IBS as well as GLP-1 on board with slow transit. He is on GLP-1 vs Susan-Gaxiola tear vs less likely gastroparesis.
Start lactulose 20 g p.o. twice daily
Obtain x-ray of the abdomen today
Continue MiraLAX and Senokot
Continue simethicone and Bentyl as needed
Continue antiemetics as needed
Continue anxiolytics as needed
Try to avoid narcotic
On IV Protonix twice a day
GI on consult and signed off--> I discussed with GI today on 10/21 and we will try conservative measures today and if not improvement would consider EGD tomorrow but will discuss with patient again later today.
Left kidney cyst:
Initial images suspicion for adrenal mass but it turned out to be left renal cyst by ultrasonography
Blood cultures positive in another institution ??contaminant but unknown details:
Blood cultures no growth from 10/17
Remains afebrile and normal WBC
Hypokalemia:
Repleted and trend
Diabetes mellitus type 2:
Hemoglobin A1c 6.5
Holding oral hypoglycemics
Insulin sliding scale
Hypothyroidism:
Continue levothyroxine 150 mcg p.o. daily
Low TSH but Free T4 within normal
DVT prophylaxis:
SCDs
CODE STATUS:
Full code
Anticipated Discharge: 24 - 48 hours
Subjective/Interval History
-
Date of Service: October 21, 2024
Patient still having some intermittent abdominal pain and nausea. He has not had any bowel movement for a while. Afebrile. Very tearful on conversation
Objective Data
-
Vital Signs:
Vital Signs
Temp Pulse Resp BP Pulse Ox
98.6 F 87 18 132/78 99
10/21/24 07:27 10/21/24 07:27 10/21/24 07:27 10/21/24 07:27 10/21/24 07:27
I&O
10/20/24 10/21/24 10/22/24
06:59 06:59 06:59
Intake Total 960 / 960 600 / 600
Output Total 1100 / 1100
Balance -140 / -140 600 / 600
[2024-10-21] MEDS: ZOFRAN 4 MG IV ×2 (09:32→20:14)
[2024-10-21] MEDS: XANAX 0.25 MG PO ×2 (09:32→20:13)
--- NOTE | 2024-10-21 10:21 | PTCARENOTE ---
Per infection prevention, okay to discontinue enhanced precautions.
[2024-10-21 11:38] LABS: Glucose - Point of Care 131 mg/dl (70-99)
[2024-10-21] MEDS: DUPHALAC/CHRONULAC 20 GRAMS PO (12:16)
[2024-10-21] MEDS: BENTYL 10 MG PO ×2 (12:22→20:13)
[2024-10-21] MEDS: REGLAN 10 MG IV (14:28)
[2024-10-21 14:58] VITALS: BP 149/89
[2024-10-21] MEDS: TYLENOL 650 MG PO ×2 (16:10→22:13)
[2024-10-21 16:19] LABS: Glucose - Point of Care 159 mg/dl (70-99)
[2024-10-21] MEDS: NOVOLOG FLEXPEN-LOW RESISTANCE 1 UNITS SC (17:00)
[2024-10-21] MEDS: MIRALAX PO (20:13)
[2024-10-21] MEDS: DUPHALAC/CHRONULAC PO (20:13)
[2024-10-21] MEDS: SENOKOT-S PO (20:52)
[2024-10-21 21:51] LABS: Glucose - Point of Care 132 mg/dl (70-99)
[2024-10-21] MEDS: DILAUDID 1 MG IV (23:01)
[2024-10-21 23:25] VITALS: BP 138/78
[2024-10-22] VITALS (8 sets, daily range): BP systolic 16–159; BP diastolic 81–145
[2024-10-22] MEDS: SYNTHROID 150 MCG PO (05:50)
[2024-10-22 07:19] LABS: Hematocrit 49.1 % (39.0-52.0); Hemoglobin 17.3 g/dL (13.0-18.0); Mean Corp Hgb Conc. 35.2 g/dL (33.0-37.0); Mean Corpuscular Hgb 29.1 pg (27.0-31.0); Mean Corpuscular Volume 82.7 fL (80.0-94.0); Mean Platelet Volume 10.3 fL (7.4-10.4); Platelet Count 306 10^3/uL (130-400); Red Blood Cell Count 5.94 10^6/uL (4.70-6.10); Red Cell Dist. Width 13.5 % (11.5-14.5); White Blood Cell Count 9.4 10^3/uL (4.8-10.8)
[2024-10-22 07:51] LABS: Blood Urea Nitrogen 15 mg/dl (9-20); Carbon Dioxide 23 mmol/L (22-30); Chloride 100 mmol/L (98-107); Estimated Creatinine Clearance 103 ml/min; Glucose 145 mg/dl (70-99); Potassium 3.7 mmol/L (3.5-5.1); Sodium 135 mmol/L (135-145); eGFR > 60.00
[2024-10-22 08:09] LABS: Glucose - Point of Care 158 mg/dl (70-99)
[2024-10-22] MEDS: NSS (PRESERVATIVE FREE) 10 ML IV ×2 (08:22→21:11)
[2024-10-22] MEDS: PROTONIX IV 40 MG IV ×2 (08:22→21:11)
[2024-10-22] MEDS: DUPHALAC/CHRONULAC PO (08:22)
[2024-10-22] MEDS: MIRALAX PO (08:22)
[2024-10-22] MEDS: NOVOLOG FLEXPEN-LOW RESISTANCE SC ×2 (08:28→12:11)
--- NOTE | 2024-10-22 08:36 | W.PN.HOSP.TC ---
Today's Communication/Plan
-
Plan for EGD today.
Assessment / Plan
Assessment / Plan
Physical exam:
General: Well Developed, Well Nourished and No Apparent Distress
HEENT: Normocephalic, Atraumatic and Moist Mucous Membranes
Respiratory: Clear to Auscultation; Negative Wheezes, Rales or Rhonchi
Cardiac: Regular Rhythm and S1/S2
GI: Soft, Nontender and Nondistended
Musculoskeletal: No Clubbing, No Cyanosis and No Edema
Neuro: Awake, Alert and Oriented
Psych: Calm
A/P:
Recurring abdominal pain nausea and vomiting:
Unclear etiology although suspicion for infectious gastroenteritis and postinfectious IBS as well as GLP-1 on board with slow transit. He is on GLP-1 vs Susan-Gaxiola tear vs less likely gastroparesis.
Started lactulose 20 g p.o. twice daily yesterday
Obtained x-ray of the abdomen and unremarkable
Continue MiraLAX and Senokot
Continue simethicone and Bentyl as needed
Continue antiemetics as needed
Continue anxiolytics as needed
Try to avoid narcotic
On IV Protonix twice a day
GI is planning to do upper endoscopy today
Left kidney cyst:
Initial images suspicion for adrenal mass but it turned out to be left renal cyst by ultrasonography
Blood cultures positive in another institution ??contaminant but unknown details:
Blood cultures no growth from 10/17
Remains afebrile and normal WBC
Hypokalemia:
Repleted and trend
Diabetes mellitus type 2:
Hemoglobin A1c 6.5
Holding oral hypoglycemics
Insulin sliding scale
Hypothyroidism:
Continue levothyroxine 150 mcg p.o. daily
Low TSH but Free T4 within normal
DVT prophylaxis:
SCDs
CODE STATUS:
Full code
Anticipated Discharge: 24 - 48 hours
Subjective/Interval History
-
Date of Service: October 22, 2024
Patient still describes some abdominal discomfort today. Moved his bowels yesterday. Afebrile.
Objective Data
-
Labs:
Laboratory Results
10/22/24
07:07
WBC 9.4
Hgb 17.3
Hct 49.1
Plt Count 306
Sodium 135
Potassium 3.7
Chloride 100
Carbon Dioxide 23
BUN 15
Creatinine 0.9
Glucose 145 H
Calcium 9.0
Vital Signs:
Vital Signs
Temp Pulse Resp BP Pulse Ox
98.0 F 72 16 130/82 97
10/22/24 07:40 10/22/24 07:40 10/22/24 07:40 10/22/24 07:40 10/22/24 07:40
I&O
10/21/24 10/22/24 10/23/24
06:59 06:59 06:59
Intake Total 600 / 600 1440 / 1440
Balance 600 / 600 1440 / 1440
[2024-10-22 12:03] LABS: Glucose - Point of Care 121 mg/dl (70-99)
[2024-10-22] MEDS: XANAX 0.25 MG PO (14:26)
[2024-10-22] MEDS: ZOFRAN 4 MG IV ×2 (14:26→22:35)
--- NOTE | 2024-10-22 16:43 | CM ---
CM reviewed chart, for EGD today. CM will continue to follow for all discharge planning needs.
Plan; home no needs anticipated.
[2024-10-22 17:00] LABS: Glucose - Point of Care 169 mg/dl (70-99)
[2024-10-22] MEDS: BENTYL 10 MG PO (17:32)
[2024-10-22] MEDS: REGLAN 10 MG IV (17:32)
[2024-10-22] MEDS: MYLICON 80 MG PO (17:34)
[2024-10-22] MEDS: NOVOLOG FLEXPEN-LOW RESISTANCE 1 UNITS SC (17:54)
[2024-10-22] MEDS: SENOKOT-S 1 TABLET PO (21:11)
[2024-10-22] MEDS: DUPHALAC/CHRONULAC 20 GRAMS PO (21:11)
[2024-10-22] MEDS: MIRALAX 17 GRAMS PO (21:11)
[2024-10-22 21:38] LABS: Glucose - Point of Care 159 mg/dl (70-99)
[2024-10-22] MEDS: DILAUDID 1 MG IV (22:01)
[2024-10-23] MEDS: SYNTHROID 150 MCG PO (05:19)
[2024-10-23 07:31] VITALS: BP 127/81
[2024-10-23 08:00] LABS: Glucose - Point of Care 148 mg/dl (70-99)
[2024-10-23] MEDS: NOVOLOG FLEXPEN-LOW RESISTANCE SC (08:02)
[2024-10-23] MEDS: PROTONIX IV 40 MG IV (08:37)
[2024-10-23] MEDS: NSS (PRESERVATIVE FREE) 10 ML IV (08:37)
[2024-10-23] MEDS: MIRALAX PO ×2 (08:45→20:37)
[2024-10-23] MEDS: DUPHALAC/CHRONULAC PO (08:45)
--- NOTE | 2024-10-23 09:03 | W.PN.HOSP.TC ---
Today's Communication/Plan
-
Ensure. Stop lactulose. Discharge planning
Assessment / Plan
Assessment / Plan
Physical exam:
General: Well Developed, Well Nourished and No Apparent Distress
HEENT: Normocephalic, Atraumatic and Moist Mucous Membranes
Respiratory: Clear to Auscultation; Negative Wheezes, Rales or Rhonchi
Cardiac: Regular Rhythm and S1/S2
GI: Soft, Nontender and Nondistended
Musculoskeletal: No Clubbing, No Cyanosis and No Edema
Neuro: Awake, Alert and Oriented
Psych: Calm
EGD:
- Normal proximal esophagus.
- Esophageal plaques were found in the mid and distal
esophagus, suspicious for candidiasis. Biopsied.
- Erythematous mucosa in the distal esophagus.
Suspicious for healing dorothy-gaxiola tear. Biopsied.
- Z-line regular, 45 cm from the incisors.
- Small hiatal hernia.
- Normal stomach on direct and retroflexion views.
Biopsied to rule out H pylori.
- Normal examined duodenum up to the second portion.
Biopsied to rule out Celiac.
- The examination was otherwise normal.
A/P:
Recurring abdominal pain nausea and vomiting:
Unclear etiology although suspicion for infectious gastroenteritis and postinfectious IBS as well as GLP-1 on board with slow transit. He is on GLP-1 vs Dorothy-Gaxiola tear vs less likely gastroparesis.
He told me yesterday pain came back but attributed to lactulose.
Discontinued lactulose today
Status post EGD on 07/23.
He was to try some Ensure today as well
He was to see how he does over the next 24 hours possibly planning discharge
Prior to today:
Obtained x-ray of the abdomen and unremarkable
Continue MiraLAX and Senokot
Continue simethicone and Bentyl as needed
Continue antiemetics as needed
Continue anxiolytics as needed
Try to avoid narcotic
On IV Protonix twice a day
GI is planning to do upper endoscopy today
Left kidney cyst:
Initial images suspicion for adrenal mass but it turned out to be left renal cyst by ultrasonography
Blood cultures positive in another institution ??contaminant but unknown details:
Blood cultures no growth from 10/17
Remains afebrile and normal WBC
Hypokalemia:
Repleted and trend
Diabetes mellitus type 2:
Hemoglobin A1c 6.5
Holding oral hypoglycemics
Insulin sliding scale
Hypothyroidism:
Continue levothyroxine 150 mcg p.o. daily
Low TSH but Free T4 within normal
DVT prophylaxis:
SCDs
CODE STATUS:
Full code
Anticipated Discharge: Within 24 hours
Subjective/Interval History
-
Date of Service: October 23, 2024
Patient feels better today. Afebrile
Objective Data
-
Vital Signs:
Vital Signs
Temp Pulse Resp BP Pulse Ox
98.3 F 78 17 127/81 96
10/23/24 07:31 10/23/24 07:31 10/23/24 07:31 10/23/24 07:31 10/23/24 07:31
I&O
10/22/24 10/23/24 10/24/24
06:59 06:59 06:59
Intake Total 1440 / 1440 720 / 720
Output Total 400 / 400
Balance 1440 / 1440 320 / 320
[2024-10-23 11:41] LABS: Glucose - Point of Care 161 mg/dl (70-99)
[2024-10-23] MEDS: NOVOLOG FLEXPEN-LOW RESISTANCE 1 UNITS SC ×2 (13:08→18:00)
[2024-10-23 14:49] VITALS: BP 118/75
[2024-10-23 15:36] LABS: Glucose - Point of Care 194 mg/dl (70-99)
[2024-10-23] MEDS: PROTONIX 40 MG PO (20:38)
[2024-10-23] MEDS: SENOKOT-S 1 TABLET PO (20:39)
[2024-10-23 21:30] LABS: Glucose - Point of Care 179 mg/dl (70-99)
[2024-10-23 23:00] VITALS: BP 111/77
[2024-10-24] MEDS: SYNTHROID 150 MCG PO (06:27)
[2024-10-24 07:41] LABS: Glucose - Point of Care 162 mg/dl (70-99)
[2024-10-24 08:04] VITALS: BP 121/83
[2024-10-24] MEDS: NOVOLOG FLEXPEN-LOW RESISTANCE 1 UNITS SC ×2 (08:04→12:13)
[2024-10-24] MEDS: MIRALAX PO (08:10)
[2024-10-24] MEDS: PROTONIX 40 MG PO (08:11)
--- NOTE | 2024-10-24 09:54 | W.PN.HOSP.TC ---
Today's Communication/Plan
-
Discharge planning today.
Assessment / Plan
Assessment / Plan
Physical exam:
General: Well Developed, Well Nourished and No Apparent Distress
HEENT: Normocephalic, Atraumatic and Moist Mucous Membranes
Respiratory: Clear to Auscultation; Negative Wheezes, Rales or Rhonchi
Cardiac: Regular Rhythm and S1/S2
GI: Soft, Nontender and Nondistended
Musculoskeletal: No Clubbing, No Cyanosis and No Edema
Neuro: Awake, Alert and Oriented
Psych: Calm
EGD:
- Normal proximal esophagus.
- Esophageal plaques were found in the mid and distal
esophagus, suspicious for candidiasis. Biopsied.
- Erythematous mucosa in the distal esophagus.
Suspicious for healing dorothy-gaxiola tear. Biopsied.
- Z-line regular, 45 cm from the incisors.
- Small hiatal hernia.
- Normal stomach on direct and retroflexion views.
Biopsied to rule out H pylori.
- Normal examined duodenum up to the second portion.
Biopsied to rule out Celiac.
- The examination was otherwise normal.
A/P:
Recurring abdominal pain nausea and vomiting:
Patient remarkably improved at this point.
Follow-up with PCP and GI as outpatient.
No new medications but would advise to hold GLP-1 for probably another week. Continue supportive care.
Plan to discharge today
Prior to today:
Unclear etiology although suspicion for infectious gastroenteritis and postinfectious IBS as well as GLP-1 on board with slow transit. He is on GLP-1 vs Dorothy-Gaxiola tear vs less likely gastroparesis.
He told me yesterday pain came back but attributed to lactulose.
Discontinued lactulose today
Status post EGD on 07/23.
He was to try some Ensure today as well
Obtained x-ray of the abdomen and unremarkable
Continue MiraLAX and Senokot
Continue simethicone and Bentyl as needed
Continue antiemetics as needed
Continue anxiolytics as needed
Try to avoid narcotic
On IV Protonix twice a day
GI is planning to do upper endoscopy today
Left kidney cyst:
Initial images suspicion for adrenal mass but it turned out to be left renal cyst by ultrasonography
Blood cultures positive in another institution ??contaminant but unknown details:
Blood cultures no growth from 10/17
Remains afebrile and normal WBC
Hypokalemia:
Repleted and trend
Diabetes mellitus type 2:
Hemoglobin A1c 6.5
Holding oral hypoglycemics
Insulin sliding scale
Hypothyroidism:
Continue levothyroxine 150 mcg p.o. daily
Low TSH but Free T4 within normal
DVT prophylaxis:
SCDs
CODE STATUS:
Full code
Anticipated Discharge: Today
Subjective/Interval History
-
Date of Service: October 24, 2024
Patient feels much better today. No abdominal pain or nausea. He feels he is ready to go home today
Objective Data
-
Vital Signs:
Vital Signs
Temp Pulse Resp BP Pulse Ox
98.4 F 73 16 121/83 94
10/24/24 08:04 10/24/24 08:04 10/24/24 08:04 10/24/24 08:04 10/24/24 08:04
I&O
10/23/24 10/24/24 10/25/24
06:59 06:59 06:59
Intake Total 720 / 720 1540 / 1540
Output Total 400 / 400 300 / 300
Balance 320 / 320 1240 / 1240
[2024-10-24 10:59] LABS: Glucose - Point of Care 167 mg/dl (70-99)
--- NOTE | 2024-10-24 14:01 | W.DCSUMMARY ---
Discharge Summary
Discharge Data
Date of Admission: 10/19/24
Date of Discharge: 10/24/24
-
Pending Results: No
Hospital Course
Patient is 64 years old male with history of hypertension, hypothyroidism, diabetes mellitus, GERD, recent hospitalization at [facility] and came into the hospital with abdominal pain nausea and vomiting. GI consulted. Patient had a prolonged
hospital stay with prolonged symptoms of abdominal pain and nausea and vomiting. He was treated conservatively with medication and it was felt that he had some infectious gastroenteritis and probably exacerbated by GLP-1 with slow GI transit. He
did have an upper endoscopy and history of some abnormal lesions that were biopsied and will be follow-up as outpatient. Patient fortunately did improve and his symptoms and had been able to tolerate fluid intake without any GI symptoms prior to
discharge. He will be discharged in stable condition today.
Discharge duration: 35 minutes
Discharge Plan
-
Patient Disposition: Home (Routine Discharge)
Discharge Diagnosis/Procedures: Infectious gastroenteritis. Persistent abdominal pain and nausea, now improved.
Diet: Diabetic, Carb Controlled
Activity: As tolerated
Blood Work: Please PCP to order CBC, BMP within 1 week
Referrals:
Viktor Hanson DO [Active] - in two to four weeks
Flaquito Urbano MD [Family Provider] - in less than 1 week
Prescriptions:
Continued
Januvia 100 mg Tablet
100 mg PO DAILY
levothyroxine 175 mcg Tablet
175 mcg PO DAILY@0415
simvastatin 10 mg Tablet
10 mg PO HS
Patient Comments:
pt does not know dose
aspirin 81 mg Tablet,Delayed Release (Dr/Ec)
81 mg PO HS
metformin 500 mg Tablet Extended Release 24 Hr
1,000 mg PO BID@0800,1700
Patient Comments:
pt does not know dose
glipizide 5 mg Tablet
5 mg PO BID@0800,1700
Patient Comments:
pt does not know dose
icosapent ethyl [Vascepa] 1 gram Capsule
2 g PO BID@0800,1700
Patient Comments:
pt does not know dose
Jardiance 25 mg Tablet
25 mg PO DAILY
omeprazole 40 mg Capsule,Delayed Release(Dr/Ec)
40 mg PO DAILY@0415
pioglitazone 45 mg Tablet
45 mg PO DAILY
ondansetron HCl 4 mg Tablet
4 mg PO Q8HPRN PRN (Reason: nausea)
rhnpcczpaoqv-edfcgohw-fbahvy Tablet
1 tab PO HS
Held
Rybelsus 14 mg Tablet
14 mg PO DAILY@0515
Hold Instructions: Resume on 11/02/24.
Patient Comments:
pt does not know dose
Discharge Orders:
Discharge Patient (As Directed); Ordered 10/24/24
Ordered By: Naga Blanchard
Discharge Date and Time
Discharge Date/Time: 10/24/24 14:50
Print Language: SAMOAN
[2024-10-24 14:17] VITALS: BP 135/86
== END 2024-10-24 14:50 | disposition home or self-care (01) | DRG 391 ==
LOC: 3 WEST ACU 16:27
PROVIDERS: Emergency Medicine; Internal Medicine; Physician Assistant; Registered Nurse; ADMITTING PHYSICIAN Hospitalist; ATTENDING PHYSICIAN Hospitalist; CONSULT PHYSICIAN Student in an Organized Health Care Education/Training Program; EMERGENCY PHYSICIAN Student in an Organized Health Care Education/Training Program; FAMILY PHYSICIAN Family Medicine
PROC: 0DB58ZX Excision of Esophagus, Via Natural or Artificial Opening Endoscopic, Diagnostic (ICD-10-PCS; 2024-10-22)
DX: A09 Infectious gastroenteritis and colitis, unspecified (principal); K22.6 Gastro-esophageal laceration-hemorrhage syndrome; E87.20 Acidosis, unspecified; B37.81 Candidal esophagitis; N28.1 Cyst of kidney, acquired; E03.9 Hypothyroidism, unspecified; E11.9 Type 2 diabetes mellitus without complications; E78.5 Hyperlipidemia, unspecified; E87.6 Hypokalemia; K22.89 Other specified disease of esophagus; K44.9 Diaphragmatic hernia without obstruction or gangrene
CPT/HCPCS: 88305; 74018; 74177; 76775; 80048; 80053; 81003; 82962; 83036; 83605; 83690; 83735; 84439; 84443; 84484; 85025; 85027; 87040; 87045; 87046; 87324; 87427; 87449; 87798; 88342; 89055; 93005; 96361; 96374; 96375; 99285; 99406; Q9967

== ENCOUNTER 2025-07-02 17:49 | Inpatient (IN) | payer MEDICARE, SELFPAY ==
[2025-07-02 11:30] VITALS: BP 105/75
[2025-07-02 11:48] LABS: Hematocrit 47.1 % (39.0-52.0); Hemoglobin 15.8 g/dL (13.0-18.0); Mean Corp Hgb Conc. 33.5 g/dL (33.0-37.0); Mean Corpuscular Volume 84.3 fL (80.0-94.0); Nucleated Red Blood Cells % 0 % (-); Platelet Count 381 10^3/uL (130-400); Red Cell Dist. Width 14.4 % (11.5-14.5)
[2025-07-02 12:06] LABS: ALT (SGPT) 22 U/L (0-50); AST (SGOT) 20 U/L (17-59); Albumin 4.9 g/dl (3.5-5.0); Alkaline Phosphatase 77 U/L (38-126); Blood Urea Nitrogen 19 mg/dl (9-20); Calcium 9.8 mg/dl (8.4-10.2); Carbon Dioxide 18 mmol/L (22-30); Chloride 107 mmol/L (98-107); Glucose 226 mg/dl (70-99); Lipase 180 U/L (23-300); Potassium 4.1 mmol/L (3.5-5.1); Sodium 139 mmol/L (135-145); Total Protein 7.2 g/dl (6.3-8.2); eGFR > 60.00
[2025-07-02 12:40] LABS: Urine Character Clear (Clear)
--- NOTE | 2025-07-02 12:42 | ED.GENMED ---
History of Present Illness
General
Chief Complaint: Abdominal Symptoms
Time Seen by Provider: 07/02/25 12:36
Nursing documentation reviewed up to this point in time: agreed with
History of Present Illness
History of Present Illness:
65-year-old male presents to the ER for evaluation of nausea and vomiting along with diffuse upper abdominal discomfort which started abruptly this morning. Patient denies any recent antibiotic usage or elements. He denies any recent change in his
medications. He took all of his regular medicines this morning prior to vomiting. He reports the pain to be severe. No chest pain. No shortness of breath. No fevers or chills. He states he had similar pain earlier in the year and had been
admitted to the hospital of unclear etiology. He denies dysuria or change in urine output. No syncope or trauma. He has no prior history of surgery
Phy Exam
Physical Exam
Physical Exam:
. Patient is awake, alert, moaning intermittently during exam, rocking on the stretcher in discomfort,, head is normocephalic atraumatic conjunctiva pink, PERRL, sclera anicteric, mucous membranes tacky, heart regular rate and rhythm without
murmurs or ectopy, lungs are clear to auscultation without wheezes rales or rhonchi, abdomen is soft without guarding or rebound, mild diffuse pain on palpation upper abdomen, no palpable hernia, extremities without edema, 2+ DP pulses present
symmetric bilateral feet, GCS is 15
Course
Orders/Labs/Results
Orders:
Orders
07/02/25 11:34
Electrocardiogram (*1) Urgent
Reason for Study: Abdominal Pain
EKG- Treatment ONCE
07/02/25 11:39
Complete Blood Count/With Diff Urgent
Comprehensive Metabolic Panel Urgent
Lipase Urgent
07/02/25 12:24
Lactate Level [Lactic Acid] Q4H
07/02/25 12:25
Urinalysis Reflex To Culture Urgent
Date Specimen was Collected: 07/02/25
Time Specimen was Collected: 12:24
Urine Microscopic Reflex Cult Urgent
07/02/25 12:41
CT Abd/pelvis W Iv Cont Urgent
Comment:
Reason For Exam: upper abdominal
0.9% Sodium Chloride 1000 ml [Nss] 1,000 ml IV BOLUS
HYDROmorphone [Dilaudid] 0.5 mg IV NOW STA
Ondansetron Injectable [Zofran] 4 mg IV NOW STA
07/02/25 16:30
Lactate Level [Lactic Acid] Q4H
Abnormal Lab Results
07/02/25 07/02/25 07/02/25
11:39 12:24 12:25
WBC 14.5 H 10^3/uL
(4.8-10.8)
Abs Immat Gran (auto) 0.1 H 10^3/uL
(0-0.05)
Absolute Neuts (auto) 12.9 H 10^3/uL
(1.4-6.5)
Absolute Lymphs (auto) 1.0 L 10^3/uL
(1.2-3.4)
Neutrophils % 89.1 H %
(42.2-75.2)
Lymphocytes % 7.0 L %
(20.5-51.1)
Carbon Dioxide 18 L mmol/L
(22-30)
Glucose 226 H mg/dl
(70-99)
Lactic Acid 3.5 H mmol/L
(0.7-2.0)
Urine Ketones 3+ A
(Negative)
Urine Bacteria (Reflex) Few A
(Negative)
Urine Glucose 4+ A
(Negative)
Urine Albumin (Reflex) 1+ A
(Neg - Trace)
07/02/25 11:39
07/02/25 11:39
Elevated white blood count. Kidney function preserved. Mild elevation in glucose
Vital Signs
Initial and Last Documented VS:
Initial Vital Signs
Temp Pulse Resp BP Pulse Ox
98.1 F 80 18 105/75 100
07/02/25 11:30 07/02/25 11:30 07/02/25 11:30 07/02/25 11:30 07/02/25 11:30
Last Documented Vital Signs
Temp Pulse Resp BP Pulse Ox
98.1 F 80 16 143/90 100
07/02/25 11:30 07/02/25 13:33 07/02/25 13:33 07/02/25 13:33 07/02/25 13:33
MDM/Problems Addressed
Differential Diagnosis Includes:
Differential diagnosis to consider but not limited to pancreatitis, gallstone ileus, gastroparesis, bowel obstruction irritable bowel syndrome along with other etiologies, considered
Chronic conditions affecting care:
Diabetes, high cholesterol
*Radiology
Radiology exam reviewed: radiology read reviewed (IMPRESSION: 1. Mild bowel wall thickening involving the transverse colon, which may be related to nondistention or mild colitis. 2. No evidence of intestinal obstruction, nephrolithiasis,
hydronephrosis, cholecystitis, or abscess formation. 3. Stable left adrenal mass.)
*Pulse Oximetry
SaO2: 100
Oxygen Mode of Delivery: Room air
Patient hypoxic: no
*Critical Care Note
Total Time (30-74mins, 75-104mins- exclusive of procedures): Not Applicable
Data Reviewed
Review of Other/Old Records Reveals: Records (Pain I reviewed discharge summary from Dr. Blanchard dated 10/24/2024-patient had been admitted for vomiting and abdominal pain felt related to infectious gastroenteritis and GLP-1 with slow GI transit.)
Update Note
Update Note:
. Once all test results available, I reviewed this information with the patient. Electrolytes are very reassuring. CT scan shows mild colitis. Patient states that pain and nausea is starting to come back, but he has had no vomiting since
receiving medications. I discussed with patient possible plan for discharge home. Will trial p.o., if he is able to tolerate patient states he may feel feel comfortable going home. Patient given dory deborah and crackers. Will reassess
1650: Patient was unable to tolerate p.o. challenge with recurrent severe pain and emesis. Additional pain meds, antiemetic, IV fluids ordered. Will also recheck BMP as I would suspect CO2 would have improved compared to prior. Repeated lactate
also pending. IV antibiotics ordered. I reviewed full patient presentation with the hospitalist who accepts pt for admission
ED Attending Note
-
Portions of this chart may have been created with voice recognition software.� Occasional wrong word or��sound alike� substitutions may have occurred due to the inherent limitations of voice recognition software.
Discharge Plan
Departure
Patient Disposition: Admit
Date of Disposition: 07/02/25
Time of Disposition: 16:52
Presentation/result/management discussed w/ accepting MD/DO: Hospitalist
Discharge Problem:
Abdominal pain, Colitis, Diabetes
Prescriptions:
No Action
Januvia 100 mg Tablet
100 mg PO DAILY
levothyroxine 175 mcg Tablet
175 mcg PO DAILY@0415
simvastatin 10 mg Tablet
10 mg PO HS
Patient Comments:
pt does not know dose
aspirin 81 mg Tablet,Delayed Release (Dr/Ec)
81 mg PO HS
metformin 500 mg Tablet Extended Release 24 Hr
1,000 mg PO BID@0800,1700
Patient Comments:
pt does not know dose
glipizide 5 mg Tablet
5 mg PO BID@0800,1700
Patient Comments:
pt does not know dose
icosapent ethyl [Vascepa] 1 gram Capsule
2 g PO BID@0800,1700
Patient Comments:
pt does not know dose
Jardiance 25 mg Tablet
25 mg PO DAILY
Rybelsus 14 mg Tablet
14 mg PO DAILY@0515
Patient Comments:
pt does not know dose
omeprazole 40 mg Capsule,Delayed Release(Dr/Ec)
40 mg PO DAILY@0415
pioglitazone 45 mg Tablet
45 mg PO DAILY
ondansetron HCl 4 mg Tablet
4 mg PO Q8HPRN PRN (Reason: nausea)
nsujnzvwpssf-xmlardwz-vkvqat Tablet
1 tab PO HS
Referrals:
Flaquito Urbano MD [Family Provider, Family Practice]
Interventions
Interventions:
*Risk Screen - Suicide Last Done: 07/02/25 11:30
JS-Ccfwhy-Jnqadqsyof Assessment Last Done: 07/02/25 13:00
Discharge Date and Time
Print Language: PORTUGUESE
[2025-07-02 12:47] LABS: Urine Red Blood Cell 0-2 /HPF (0-2); Urine White Cell 0-2 /HPF (0-5)
[2025-07-02] MEDS: NSS 1000 IV ×3 (12:59→20:13)
[2025-07-02] MEDS: ZOFRAN 4 MG IV ×3 (12:59→21:59)
[2025-07-02] MEDS: DILAUDID 0.5 MG IV ×2 (12:59→22:00)
[2025-07-02 13:33] VITALS: BP 143/90; BMI 27.9
[2025-07-02 15:42] VITALS: BP 160/92
[2025-07-02 16:31] VITALS: BP 153/94
--- NOTE | 2025-07-02 16:51 | HPS.HSE ---
Family Physician
-
Family Physician: Flaquito Urbano
Chief Complaint
-
Abdominal pain associated with nausea and vomiting
History of Present Illness
65-year-old male past medical history for type 2 diabetes, hyperlipidemia, hypothyroidism, GERD presents to the ER for evaluation of nausea and vomiting along with diffuse upper abdominal discomfort which started abruptly this morning. Patient was
fasting since 4 PM yesterday. Denied anything eating unusual from outside. He took his medication along with his usual breakfast. Since then he has been feeling epigastric abdominal pain and vomited multiple times at home. Patient denied any
constipation. Patient moved 3 soft BMs. Patient denied any headache, dizzy or syncope. Patient denied any fever, chills, chest pain, short of breath. Patient denied dysuria hematuria.
CT concern for colitis. Patient received dose of Unasyn, Dilaudid, normal saline, Zofran in the ER. Admitting for further management
Medical History
Past Medical History
Past Medical History: Reports Other
Additional Past Medical History:
Type 2 diabetes
Hyperlipidemia
GERD
Past Surgical History: Reports None
Social History
Tobacco: Former Smoker
Alcohol: None
Drug: None
Family History
Family History: Not pertinent
Allergies / Home Medications
Allergies reflects when Allergies were last updated in [facility].
Home Medications with original date entered in [facility]
Allergy/Medication List:
Allergies
Allergy/AdvReac Type Severity Reaction Status Date / Time
No Known Allergies Allergy Verified 07/02/25 11:30
Home Medications
aspirin 81 mg tablet,delayed release 81 mg PO HS Blood Clot Prevention/Tx 10/17/24
empagliflozin 25 mg tablet (Jardiance) 25 mg PO DAILY Diabetes 10/17/24
glipizide 5 mg tablet 5 mg PO BID@0800,1700 Diabetes 10/17/24
icosapent ethyl 1 gram capsule (Vascepa) 2 g PO BID@0800,1700 High Cholesterol 12/14/24
levothyroxine 175 mcg tablet 175 mcg PO DAILY@0415 Thyroid 10/17/24
metformin 500 mg tablet,extended release 24 hr 1,000 mg PO BID@0800,1700 Diabetes 10/17/24
omeprazole 40 mg capsule,delayed release 40 mg PO DAILY@0415 Gastrointestinal Issue 10/17/24
pioglitazone 45 mg tablet 45 mg PO DAILY Diabetes 10/17/24
semaglutide 14 mg tablet (Rybelsus) 14 mg PO DAILY@0515 Diabetes 10/17/24
Held on 10/24/24. Instructions: Resume on 11/02/24.
simvastatin 10 mg tablet 10 mg PO HS High Cholesterol 10/17/24
sitagliptin phosphate 100 mg tablet (Januvia) 100 mg PO DAILY Diabetes 10/17/24
ruypgyabplsi-xrmjthes-ennvmk tablet 1 tab PO HS Supplement 10/23/24
ondansetron HCl 4 mg tablet 4 mg PO Q8HPRN PRN nausea 10/23/24
Review of Systems
-
Constitutional: Reports No Symptoms
EENT: Reports No Symptoms
Respiratory: Reports No Symptoms
Cardiac: Reports No Symptoms
Abdomen/GI: Reports Abdominal Pain, Nausea and Vomiting
: Reports No Symptoms
Musculoskeletal: Reports No Symptoms
Skin: Reports No Symptoms
Neurological: Reports No Symptoms
Endocrine: Reports No Symptoms
Hematologic/Lymphatic: Reports No Symptoms
Psych: Reports No Symptoms
Physical Exam
Vital Signs
Vital Signs
Temp Pulse Resp BP Pulse Ox
98.1 F 80 16 143/90 100
07/02/25 11:30 07/02/25 13:33 07/02/25 13:33 07/02/25 13:33 07/02/25 13:33
Physical Exam
General: Well Developed, Well Nourished and No Apparent Distress
HEENT: NormoCephalic, Moist mucous membranes and Atraumatic
Respiratory: Clear
Cardiac: S1/S2 and Regular Rhythm; No Murmur or Rub
GI: Soft, Non Distended, Normal Bowel Sounds and Tender; No Organomegaly
Rectal: Deferred by Provider
Musculoskeletal: No Clubbing, No Cyanosis and No Edema
Skin: No Rash
Neuro: AO x 3 and Nonfocal/grossly intact
Psych: Calm
Laboratory Results
-
07/02/25 11:39
Laboratory Results
Lactic Acid 3.5 mmol/L (0.7-2.0) H 07/02/25 12:24
Total Bilirubin 1.2 mg/dl (0.2-1.3) 07/02/25 11:39
AST 20 U/L (17-59) 07/02/25 11:39
ALT 22 U/L (0-50) 07/02/25 11:39
Alkaline Phosphatase 77 U/L (38-126) 07/02/25 11:39
Lipase 180 U/L (23-300) 07/02/25 11:39
Data Reviewed
-
CT Scan: Report Reviewed by me
Lab Data: Labs Reviewed by me
Impression/Plan
-
# Intractable nausea vomiting associate with abdominal pain concern for mild colitis
- sepsis as evident by WBC 14.5, patient is afebrile, lactic 3.5
-CT abdomen pelvis with impression of Mild bowel wall thickening involving the transverse colon, which may be related to nondistention or mild colitis. No evidence of intestinal obstruction, nephrolithiasis, hydronephrosis, cholecystitis, or abscess
formation.Stable left adrenal mass.
- IV Unasyn continue
- Clear liquid diet, advance as tolerated
- Dilaudid as needed for pain
- Zofran as needed for nausea vomiting
-stool for culture, norovirus
-GI consulted.
#Diabetes mellitus type 2:
-Holding oral hypoglycemics
-Insulin sliding scale
#Hypothyroidism:
Continue levothyroxine
# Hyperlipidemia
-simvastatin continue
# GERD
-Omeprazole continue
DVT prophylaxis:
Lovenox
CODE STATUS:
Full code
[2025-07-02 17:00] VITALS: BP 139/84
[2025-07-02] MEDS: DILAUDID 1 MG IV (17:04)
--- NOTE | 2025-07-02 17:32 | W.PN.UPDATE ---
Update Note
Progress Note Update
This note serves as an addendum to the H&P by fish hatchery inspector TAYLOR�
Kylie ANGELIQUE�
HPI
65-year-old male presents to the ER for evaluation of nausea and vomiting along with diffuse upper abdominal discomfort which started abruptly this morning. Patient denies any recent antibiotic usage or elements. He denies any recent change in his
medications. He took all of his regular medicines this morning prior to vomiting. He reports the pain to be severe. No chest pain. No shortness of breath. No fevers or chills. He states he had similar pain earlier in the year and had been
admitted to the hospital of unclear etiology. He denies dysuria or change in urine output. No syncope or trauma. He has no prior history of surgery
Relevant VS
Temp Pulse Resp BP Pulse Ox
98.1 F 80 16 143/90 100
07/02/25 11:30 07/02/25 13:33 07/02/25 13:33 07/02/25 13:33 07/02/25 13:33
PE
General: No Apparent Distress
HEENT: Atraumatic and dry Mucous Membranes
Respiratory: Clear to Auscultation
Cardiac: Regular Rhythm and S1/S2
GI: Soft, Nontender and Nondistended
Musculoskeletal: No Edema
Neuro: Awake, Alert and Oriented
Psych: Calm
Relevant Data
07/02/25 07/02/25 07/02/25
11:39 12:24 12:25
WBC 14.5 H
Abs Immat Gran (auto) 0.1 H
Absolute Neuts (auto) 12.9 H
Absolute Lymphs (auto) 1.0 L
Neutrophils % 89.1 H
Lymphocytes % 7.0 L
Carbon Dioxide 18 L
Glucose 226 H
Lactic Acid 3.5 H
Urine Ketones 3+ A
Urine Bacteria (Reflex) Few A
Urine Glucose 4+ A
Urine Albumin (Reflex) 1+ A
CT AP with IV contrast
1. Mild bowel wall thickening involving the transverse colon, which may be related to nondistention or mild colitis.
2. No evidence of intestinal obstruction, nephrolithiasis, hydronephrosis, cholecystitis, or abscess formation.
3. Stable left adrenal mass.
EKG
NORMAL SINUS RHYTHM
QTcB >= 480 msec
ABNORMAL ECG
WHEN COMPARED WITH ECG OF 17-Oct-2024 14:43,
FUSION COMPLEXES ARE NO LONGER PRESENT
PREMATURE VENTRICULAR COMPLEXES ARE NO LONGER PRESENT
Last hospitalist admission: Date of Admission: 10/19/24 - Date of Discharge: 10/24/24
PDX; Infectious gastroenteritis. Persistent abdominal pain and nausea, now improved.
ASSESSMENT & PLAN
Recurring abdominal pain nausea and vomiting: similar illness with admission in Oct 2024
- No acute diarrhea just N/V ? presumed viral gastritis plus or minus undiagnosed gastroparesis triggerdd by
- Unclear etiology although suspicion for infectious
- CT AP suggest Colitis NOS
- unable to tolerate p.o. challenge with recurrent severe pain and emesis
- Clear plus IV NS
- ADAT
- stool for Cx, Noro virus and C Diff
- GI consult
Hypocarbia due to albumin corrected NAG MA due to vomiting
- IV NS
- Trend Anion gap in AM
DMT2
- A1c 6.5 in 2023
- Holding oral hypoglycemics
- ISS low
Hypothyroidism:
- on LINOLEUM LAYER LT4
Left kidney cyst HX
Preserved renal function
- by prior ultrasonography
DVT Px: LMWH
Full code
OBS MS
[2025-07-02 18:01] LABS: Blood Urea Nitrogen 17 mg/dl (9-20); Calcium 9.0 mg/dl (8.4-10.2); Carbon Dioxide 15 mmol/L (22-30); Chloride 108 mmol/L (98-107); Estimated Creatinine Clearance 115 ml/min; Glucose 149 mg/dl (70-99); Sodium 137 mmol/L (135-145); eGFR > 60.00
--- NOTE | 2025-07-02 18:30 | PTCARENOTE ---
Received pt from ED via stretcher. Pt ambulated to bed independently. AAox3. Scab observed on R knee.
[2025-07-02 18:32] VITALS: BMI 27.3
[2025-07-02 18:41] VITALS: BP 123/83
[2025-07-02 18:49] LABS: Glucose - Point of Care 128 mg/dl (70-99)
[2025-07-02] MEDS: LOVENOX 40 MG SC (20:14)
[2025-07-02] MEDS: UNASYN IV (20:14)
[2025-07-02] MEDS: LIPITOR 10 MG PO (20:15)
[2025-07-02] MEDS: ASPIR LOW (ENTERIC COATED) 81 MG PO (20:15)
[2025-07-03 00:14] VITALS: BP 115/65
[2025-07-03] MEDS: UNASYN IV ×4 (03:01→19:27)
[2025-07-03] MEDS: SYNTHROID 175 MCG PO (06:34)
[2025-07-03 07:14] VITALS: BP 130/79
[2025-07-03 07:24] LABS: Glucose - Point of Care 89 mg/dl (70-99)
[2025-07-03] MEDS: ZOFRAN 4 MG IV ×3 (07:24→19:26)
[2025-07-03] MEDS: DILAUDID 0.5 MG IV ×3 (07:25→19:27)
--- NOTE | 2025-07-03 08:24 | CON.GI ---
Consultation
-
Date/Time Consultation Performed: 07/03/25
Performing Provider: Christiano Feng MD
Reason for Consultation: Nausea and vomiting
Medical History
Chief Complaint / HPI
Chief Complaint: nausea/vomiting
History of Present Illness:
The patient is a 65-year-old male with past medical history as noted with nausea and vomiting. He was in his usual of health until when after eating he had acute onset of vomiting, nausea and epigastric pain. He has not had any diarrhea,
and denies any melena or hematochezia. His glucose has been well-controlled overall on Rybelsus. He does intentionally eat small meals during the day since he has been on Rybelsus. He denies any sick contacts. He denies any hematemesis. He had
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 His mother was sick and he was unable to follow-up as planned for repeat endoscopy. In the interim he is
done well with no significant symptoms. Overnight he is feeling better, with no further vomiting, though still some nausea and epigastric discomfort. He has never had a colonoscopy.
Past Medical History
Past Medical History: Other (Hypertension, diabetes, high cholesterol, hypothyroid, GERD)
Past Surgical History: None
Social History
Tobacco: Former Smoker
Alcohol: None
Family History
Family History: Reviewed & Not Pertinent
Allergies / Home Medications
Allergy/AdvReac Type Severity Reaction Status Date / Time
No Known Allergies Allergy Verified 07/02/25 11:30
�Medication �Instructions �Recorded
aspirin 81 mg tablet,delayed 81 mg PO HS Blood Clot 10/17/24
release Prevention/Tx
empagliflozin 25 mg tablet 25 mg PO DAILY Diabetes 10/17/24
(Jardiance)
glipizide 5 mg tablet 5 mg PO BID@0800,1700 Diabetes 10/17/24
icosapent ethyl 1 gram capsule 2 g PO BID@0800,1700 High 10/17/24
(Vascepa) Cholesterol
levothyroxine 175 mcg tablet 175 mcg PO DAILY@0415 Thyroid 10/17/24
metformin 500 mg tablet,extended 1,000 mg PO BID@0800,1700 Diabetes 10/17/24
release 24 hr
omeprazole 40 mg capsule,delayed 40 mg PO DAILY@0415 10/17/24
release Gastrointestinal Issue
pioglitazone 45 mg tablet 45 mg PO DAILY Diabetes 10/17/24
semaglutide 14 mg tablet (Rybelsus) 14 mg PO DAILY@0515 Diabetes 10/17/24
Held on 10/24/24.
Instructions: Resume on
11/02/24.
simvastatin 10 mg tablet 10 mg PO HS High Cholesterol 10/17/24
sitagliptin phosphate 100 mg 100 mg PO DAILY Diabetes 10/17/24
tablet (Januvia)
sfddtkqebypn-qnytceop-olxtex tablet 1 tab PO HS Supplement 10/23/24
Review of Systems
-
All other systems: A 12 pt ROS was Negative except as stated above in HPI
Vital Signs
Temp Pulse Resp BP Pulse Ox
98.2 F 79 18 130/79 95
07/03/25 07:14 07/03/25 07:14 07/03/25 07:14 07/03/25 07:14 07/03/25 07:14
Physical Exam
Exam
General: NAD
HEENT: MMM, anicteric, no lymphadenopathy
Heart: Regular, no murmurs
Lungs: CTA bilaterally
Abdomen: normal bowel sounds, soft, no tenderness, no rebound or guarding, no masses, bruits or ascites
Extremeties: no edema
Skin: no rashes
Results
WBC 14.5 10^3/uL (4.8-10.8) H 07/02/25 11:39
Hgb 15.8 g/dL (13.0-18.0) 07/02/25 11:39
Hct 47.1 % (39.0-52.0) 07/02/25 11:39
MCV 84.3 fL (80.0-94.0) 07/02/25 11:39
Plt Count 381 10^3/uL (130-400) 07/02/25 11:39
Absolute Neuts (auto) 12.9 10^3/uL (1.4-6.5) H 07/02/25 11:39
Sodium 137 mmol/L (135-145) 07/02/25 17:02
Potassium mmol/L (3.5-5.1) 07/02/25 17:02
Chloride 108 mmol/L (98-107) H 07/02/25 17:02
Carbon Dioxide 15 mmol/L (22-30) L 07/02/25 17:02
BUN 17 mg/dl (9-20) 07/02/25 17:02
Creatinine 0.8 mg/dL (0.7-1.3) 07/02/25 17:02
Calcium 9.0 mg/dl (8.4-10.2) 07/02/25 17:02
Total Bilirubin 1.2 mg/dl (0.2-1.3) 07/02/25 11:39
AST 20 U/L (17-59) 07/02/25 11:39
ALT 22 U/L (0-50) 07/02/25 11:39
Alkaline Phosphatase 77 U/L (38-126) 07/02/25 11:39
Lipase 180 U/L (23-300) 07/02/25 11:39
Diagnostic Image Results:
CT:
IMPRESSION:
1. Mild bowel wall thickening involving the transverse colon, which may be related to nondistention or mild colitis.
2. No evidence of intestinal obstruction, nephrolithiasis, hydronephrosis, cholecystitis, or abscess formation.
3. Stable left adrenal mass.
Prior GI Procedures:
EGD:
10/2024:
Impression: - Normal proximal esophagus.
- Esophageal plaques were found in the mid and distal
esophagus, suspicious for candidiasis. Biopsied.
- Erythematous mucosa in the distal esophagus.
Suspicious for healing dorothy-maldonado tear. Biopsied.
- Z-line regular, 45 cm from the incisors.
- Small hiatal hernia.
- Normal stomach on direct and retroflexion views.
Biopsied to rule out H pylori.
- Normal examined duodenum up to the second portion.
Biopsied to rule out Celiac.
- The examination was otherwise normal.
Colonoscopy:
Assessment / Plan
-
1. Abdominal pain/vomiting: Acute, most likely foodborne illness, likely worsened with worsened glycemic control and dehydration, now overall improving with benign exam. Labs overall okay except for mild leukocytosis, normal LFTs and lipase. CT
scan with possible thickening of the colon though likely overcall, unlikely colitis without diarrhea. Other etiologies including biliary colic seem less likely. At this point we will continue supportive care, glycemic control, PPI, IV fluids.
Will check abdominal ultrasound. Will advance diet and continue to monitor. If continues to improve then okay to [place] tomorrow, will follow-up with Dr. Hanson as an outpatient for planned repeat endoscopy as well as colonoscopy.
-
-
Thank you for consultation and allowing me to participate in the patient's care. Please call the environmental law professor GI physician during the after hours with any questions or concerns.
--- NOTE | 2025-07-03 08:26 | W.PN.HOSP.TC ---
Today's Communication/Plan
-
see PN
Assessment / Plan
Assessment / Plan
65yo M with PMHx of HLD, hypothyroidism, DM, Hx of clits in Oct 2024 came with abrupt onset of pulsatile abdominal pain with nausea, mostly in RUQ and epigastrium during his breakfast, similar to the feeling he had on last admission. Still was not
able to do colonoscopy since last dmission 2/2 few re-scheduling. CT abd showed possible mild colitis in hepatic flexure and transverse colon.
A/P:
#Colitis
infectious vs inflammatory vs ischemic
Unasyn
advance diet as tolerated
GI consult
Lactic acydosis on admission - cannot exclude ischemic colitis, however CT abd with contrast does not comment vascular occlusion. SInce patient with Hx of HLD - cannotexclude ASCVD as a reason too
pain mgmt
#DM type 2 with unspecified complications
Accuchekcs
Insulin SS
DM diet
hold orl antiglycemics
#L adrenal mass on CT
previously deemed to be cyst on US in 2023
#Hypothyroidism
#Essential HTN
#ASCVD
#GERD
#HLD
cont home meds
DVT ppx lovenox
Full code
I have spent at leats 58min reviewing chart, test results, communication with consultants and providing direct patient care
Anticipated Discharge: > 48 hours
Subjective/Interval History
-
Date of Service: July 03, 2025
Objective Data
-
Labs:
Laboratory Results
07/03/25
08:08
WBC Pending
Hgb Pending
Hct Pending
Plt Count Pending
Vital Signs:
Vital Signs
Temp Pulse Resp BP Pulse Ox
98.2 F 79 18 130/79 95
07/03/25 07:14 07/03/25 07:14 07/03/25 07:14 07/03/25 07:14 07/03/25 07:14
Review of Systems
-
History Source: Patient
All other systems: Reviewed and negative
Abdomen/GI: Reports Abdominal Pain and Nausea
Physical Exam
-
General: No Apparent Distress
HEENT: Normocephalic
Respiratory: Clear to Auscultation
Cardiac: Regular Rhythm
GI: Soft, Nondistended and Tender (RUQ)
Skin: Warm
Neuro: Awake, Alert, Oriented and AO x 3
Psych: Calm
[2025-07-03] MEDS: NSS IV (09:12)
[2025-07-03 09:16] LABS: Hematocrit 43.6 % (39.0-52.0); Hemoglobin 14.4 g/dL (13.0-18.0); Mean Corp Hgb Conc. 33.0 g/dL (33.0-37.0); Mean Corpuscular Volume 87.7 fL (80.0-94.0); Platelet Count 305 10^3/uL (130-400); Red Cell Dist. Width 14.8 % (11.5-14.5)
[2025-07-03 10:19] LABS: Glycohemoglobin (HgbA1c) 6.0 % (4.0-5.6)
[2025-07-03 11:52] LABS: Glucose - Point of Care 112 mg/dl (70-99)
[2025-07-03 14:36] VITALS: BP 132/80
--- NOTE | 2025-07-03 15:33 | CM ---
alert awake oriented patient who lives alone in an apartment with 15 steps to enter. Pt is independent in all ADLs and driving. Offered VN he declined need. His SO Karianne can drive him home.No adaptive devices.Offered VN declined need.
NO VN/SNF hx
Pharmacy [facility] [place]
PCP Dr Urbano
PLAN Home no needs
[2025-07-03 16:32] LABS: Glucose - Point of Care 87 mg/dl (70-99)
[2025-07-03] MEDS: LOVENOX 40 MG SC (16:36)
[2025-07-03] MEDS: ASPIR LOW (ENTERIC COATED) 81 MG PO (20:11)
[2025-07-03] MEDS: LIPITOR 10 MG PO (20:11)
[2025-07-03 20:40] LABS: Glucose - Point of Care 131 mg/dl (70-99)
[2025-07-03 23:00] VITALS: BP 139/72
[2025-07-04] MEDS: UNASYN IV ×2 (01:05→08:01)
[2025-07-04] MEDS: ZOFRAN 4 MG IV ×4 (01:06→23:13)
[2025-07-04] MEDS: DILAUDID 0.5 MG IV ×4 (01:06→23:12)
[2025-07-04 03:00] VITALS: BP 139/72
[2025-07-04] MEDS: SYNTHROID 175 MCG PO (06:56)
[2025-07-04 07:07] LABS: Hematocrit 43.7 % (39.0-52.0); Hemoglobin 14.6 g/dL (13.0-18.0); Mean Corp Hgb Conc. 33.4 g/dL (33.0-37.0); Mean Corpuscular Volume 84.9 fL (80.0-94.0); Nucleated Red Blood Cells % 0 % (-); Platelet Count 272 10^3/uL (130-400); Red Cell Dist. Width 14.4 % (11.5-14.5)
[2025-07-04 07:42] LABS: ALT (SGPT) 22 U/L (0-50); AST (SGOT) 25 U/L (17-59); Albumin 4.0 g/dl (3.5-5.0); Alkaline Phosphatase 53 U/L (38-126); Blood Urea Nitrogen 9 mg/dl (9-20); Calcium 8.8 mg/dl (8.4-10.2); Carbon Dioxide 25 mmol/L (22-30); Chloride 107 mmol/L (98-107); Estimated Creatinine Clearance 115 ml/min; Glucose 112 mg/dl (70-99); Potassium 4.0 mmol/L (3.5-5.1); Sodium 138 mmol/L (135-145); Total Protein 6.0 g/dl (6.3-8.2); eGFR > 60.00
[2025-07-04 07:45] VITALS: BP 149/78
[2025-07-04 07:53] LABS: Glucose - Point of Care 116 mg/dl (70-99)
--- NOTE | 2025-07-04 08:22 | W.PN.GI.CBS2 ---
Today's Communication / Plan
-
Please see assessment and plan for details.
Assessment / Plan
-
1. Abdominal pain/vomiting: Acute, most likely foodborne illness, likely worsened with worsened glycemic control and dehydration, now overall improving with benign exam. Labs overall okay except for mild leukocytosis, normal LFTs and lipase. CT
scan with possible thickening of the colon though likely overcall, unlikely colitis without diarrhea. His ultrasound was negative. Overall he continues to improve and leukocytosis has resolved. At this point we discussed dietary modifications,
small, frequent meals and PPI with antiemetics. If he continues to tolerate p.o. then is okay to DC from a GI standpoint. Will follow-up with Dr. Hanson as an outpatient for planned repeat endoscopy as well as colonoscopy.
Subjective
Subjective
Date of Service: July 04, 2025
Patient feeling okay, did tolerate food without vomiting, though did have some nausea and some pain. His ultrasound was negative for gallstones or other significant pathology, no fevers or chills overnight. No diarrhea.
Objective
Data Reviewed
Laboratory Data:
Laboratory Results
07/04/25 06:44
07/04/25 06:44
Laboratory Results
Total Bilirubin 1.0 mg/dl (0.2-1.3) 07/04/25 06:44
AST 25 U/L (17-59) 07/04/25 06:44
ALT 22 U/L (0-50) 07/04/25 06:44
Alkaline Phosphatase 53 U/L (38-126) 07/04/25 06:44
Lipase 180 U/L (23-300) 07/02/25 11:39
Vital Signs and I&O:
Vital Signs
Temp Pulse Resp BP Pulse Ox
97.7 F 72 16 149/78 96
07/04/25 07:45 07/04/25 07:45 07/04/25 07:45 07/04/25 07:45 07/04/25 07:45
I&O
07/03/25 07/04/25 07/05/25
06:59 06:59 06:59
Intake Total 700 / 700
Output Total 700 / 700
Balance 0 / 0
Physical Exam
Physical Exam
General: NAD
Abdomen: normal bowel sounds, soft, no tenderness, no masses or bruits, no ascites
--- NOTE | 2025-07-04 09:08 | W.PN.HOSP.TC ---
Today's Communication/Plan
-
stop Abx
CBC in AM
control symptoms
Assessment / Plan
Assessment / Plan
65yo M with PMHx of HLD, hypothyroidism, DM, Hx of clits in Oct 2024 came with abrupt onset of pulsatile abdominal pain with nausea, mostly in RUQ and epigastrium during his breakfast, similar to the feeling he had on last admission. Still was not
able to do colonoscopy since last dmission 2/2 few re-scheduling. CT abd showed possible mild colitis in hepatic flexure and transverse colon. Patient also smoking marijuana daily for many years
A/P:
#Colitis unlikely. Probably foodborne illness
Immediate postprandial pain and nausea - complicated with slow gastric empting with semaglutide and cannabis use
Unlikely infectious since no diarrhea and afebrile
Stool studies remain neg, but unlikely clinically relevant with no diarrhea
outpatient colonoscopy and EGD as previously planned with
Unasyn stopped on
advance diet as tolerated
GI consult: PPI, small meals
Lactic acidosis on admission - CT abd with contrast does not comment vascular occlusion, but Unlikely ischemic since pain immediately during and after the meal
pain mgmt
#DM type 2 with unspecified complications
Accuchekcs
Insulin SS
DM diet
hold oral antiglycemic
Hold Semaglutide
#L adrenal mass on CT
previously deemed to be cyst on US in 2023
#Hypothyroidism
#Essential HTN
#ASCVD
#GERD
#HLD
cont home meds
DVT ppx lovenox
Full code
I have spent at least 36min reviewing chart, test results, communication with consultants and providing direct patient care
Anticipated Discharge: Within 24 hours
Subjective/Interval History
-
Date of Service: July 04, 2025
Objective Data
-
Labs:
Laboratory Results
07/04/25
06:44
WBC 6.8
Hgb 14.6
Hct 43.7
Plt Count 272
Sodium 138
Potassium 4.0
Chloride 107
Carbon Dioxide 25
BUN 9
Creatinine 0.8
Glucose 112 H
Calcium 8.8
Total Bilirubin 1.0
AST 25
ALT 22
Alkaline Phosphatase 53
Vital Signs:
Vital Signs
Temp Pulse Resp BP Pulse Ox
97.7 F 72 16 149/78 96
07/04/25 07:45 07/04/25 07:45 07/04/25 07:45 07/04/25 07:45 07/04/25 07:45
I&O
07/03/25 07/04/25 07/05/25
06:59 06:59 06:59
Intake Total 700 / 700
Output Total 700 / 700
Balance 0 / 0
Review of Systems
-
History Source: Patient
All other systems: Reviewed and negative
Abdomen/GI: Reports Abdominal Pain and Nausea
Physical Exam
-
General: No Apparent Distress
HEENT: Moist Mucous Membranes
Respiratory: Clear to Auscultation
GI: Soft, Nontender, Nondistended and Normal Bowel Sounds
Musculoskeletal: No Clubbing, No Cyanosis and No Edema
Psych: Calm
[2025-07-04 11:45] LABS: Glucose - Point of Care 98 mg/dl (70-99)
[2025-07-04 15:14] VITALS: BP 135/89
[2025-07-04 16:51] LABS: Glucose - Point of Care 94 mg/dl (70-99)
[2025-07-04] MEDS: LOVENOX SC ×2 (17:42→17:45)
[2025-07-04] MEDS: ASPIR LOW (ENTERIC COATED) 81 MG PO (20:58)
[2025-07-04] MEDS: LIPITOR 10 MG PO (20:58)
[2025-07-04 21:27] LABS: Glucose - Point of Care 150 mg/dl (70-99)
[2025-07-04 23:00] VITALS: BP 136/85
[2025-07-04] MEDS: FLUSH (NSS) 2 FLUSH IV (23:13)
--- NOTE | 2025-07-04 23:23 | PTCARENOTE ---
Assumed care of patient from previous RN. Patient awake, alert and oriented, c/o 7/10 abdominal pain and associated nausea. PRN Dilaudid and Zofran provided, see MAR. Patient states no BM, poor appetite and has not had much since to eat.
Passing flatus. Resting in bed comfortably at this time, call bedoya in reach, will monitor.
[2025-07-05] MEDS: SYNTHROID 175 MCG PO (06:02)
[2025-07-05 06:39] LABS: Hematocrit 46.6 % (39.0-52.0); Hemoglobin 15.5 g/dL (13.0-18.0); Mean Corp Hgb Conc. 33.3 g/dL (33.0-37.0); Mean Corpuscular Volume 84.9 fL (80.0-94.0); Nucleated Red Blood Cells % 0 % (-); Platelet Count 286 10^3/uL (130-400); Red Cell Dist. Width 14.0 % (11.5-14.5)
[2025-07-05 07:13] VITALS: BP 124/80
[2025-07-05 07:57] LABS: Glucose - Point of Care 130 mg/dl (70-99)
--- NOTE | 2025-07-05 08:02 | W.PN.GI.CBS2 ---
Today's Communication / Plan
-
Please see assessment and plan for details.
Assessment / Plan
-
1. Abdominal pain/vomiting: Acute, most likely foodborne illness, likely worsened with worsened glycemic control and dehydration, now overall improving with benign exam. Labs overall okay except for mild leukocytosis which is since resolved,
normal LFTs and lipase. CT scan with possible thickening of the colon though likely overcall, unlikely colitis without diarrhea. His ultrasound was negative. Overall he continues to improve and leukocytosis has resolved. At this point we
discussed dietary modifications, small, frequent meals and PPI with antiemetics. Will set up follow-up with Dr. Hanson, consider repeat EGD as previously planned and colonoscopy in the future.
Will sign off now, please call back with any further questions.
Subjective
Subjective
Date of Service: July 05, 2025
Patient feeling better, had 1 episode last night of symptoms, though overall improved, has not needed medication this morning, tolerating diet without difficulty, no fever or chills.
Objective
Data Reviewed
Laboratory Data:
Laboratory Results
07/05/25 05:40
07/04/25 06:44
Laboratory Results
Total Bilirubin 1.0 mg/dl (0.2-1.3) 07/04/25 06:44
AST 25 U/L (17-59) 07/04/25 06:44
ALT 22 U/L (0-50) 07/04/25 06:44
Alkaline Phosphatase 53 U/L (38-126) 07/04/25 06:44
Lipase 180 U/L (23-300) 07/02/25 11:39
Vital Signs and I&O:
Vital Signs
Temp Pulse Resp BP Pulse Ox
97.5 F 66 17 124/80 97
07/05/25 07:13 07/05/25 07:13 07/05/25 07:13 07/05/25 07:13 07/05/25 07:13
I&O
07/04/25 07/05/25 07/06/25
06:59 06:59 06:59
Intake Total 700 / 700 1200 / 1200
Output Total 700 / 700
Balance 0 / 0 1200 / 1200
Physical Exam
Physical Exam
General: NAD
Abdomen: normal bowel sounds, soft, no tenderness, no masses or bruits, no ascites
--- NOTE | 2025-07-05 09:08 | W.PN.HOSP.TC ---
Today's Communication/Plan
-
dc
Assessment / Plan
Assessment / Plan
65yo M with PMHx of HLD, hypothyroidism, DM, Hx of clits in Oct 2024 came with abrupt onset of pulsatile abdominal pain with nausea, mostly in RUQ and epigastrium during his breakfast, similar to the feeling he had on last admission. Still was not
able to do colonoscopy since last dmission 2/2 few re-scheduling. CT abd showed possible mild colitis in hepatic flexure and transverse colon. Patient also smoking marijuana daily for many years. Immediate postprandial pain and nausea - complicated
with slow gastric empting with semaglutide and cannabis use. GI recommended outpatient colonoscopy and EGD as previously planned with . PAtient able to tolerate diet without pain on the day of D/C. Medically stable for d/c home
A/P:
#Colitis unlikely. Probably foodborne illness
Immediate postprandial pain and nausea - complicated with slow gastric empting with semaglutide and cannabis use
Unlikely infectious since no diarrhea and afebrile
Stool studies remain neg, but unlikely clinically relevant with no diarrhea
outpatient colonoscopy and EGD as previously planned with
Unasyn stopped on
advance diet as tolerated
GI consult: PPI, small meals
Lactic acidosis on admission - CT abd with contrast does not comment vascular occlusion, but Unlikely ischemic since pain immediately during and after the meal
pain mgmt
#DM type 2 with unspecified complications
Accuchekcs
Insulin SS
DM diet
hold oral antiglycemic
Hold Semaglutide
#L adrenal mass on CT
previously deemed to be cyst on US in 2023
#Hypothyroidism
#Essential HTN
#ASCVD
#GERD
#HLD
cont home meds
DVT ppx lovenox
Full code
I have spent at least 36min reviewing chart, test results, communication with consultants and providing direct patient care
Anticipated Discharge: Today
Subjective/Interval History
-
Date of Service: July 05, 2025
Objective Data
-
Labs:
Laboratory Results
07/05/25
05:40
WBC 7.3
Hgb 15.5
Hct 46.6
Plt Count 286
Vital Signs:
Vital Signs
Temp Pulse Resp BP Pulse Ox
97.5 F 66 17 124/80 97
07/05/25 07:13 07/05/25 07:13 07/05/25 07:13 07/05/25 07:13 07/05/25 07:13
I&O
07/04/25 07/05/25 07/06/25
06:59 06:59 06:59
Intake Total 700 / 700 1200 / 1200
Output Total 700 / 700
Balance 0 / 0 1200 / 1200
Review of Systems
-
History Source: Patient
All other systems: Reviewed and negative
Physical Exam
-
General: No Apparent Distress
GI: Soft, Nontender and Nondistended
Neuro: Awake, Alert, Oriented and AO x 3
Psych: Calm
--- NOTE | 2025-07-05 09:11 | W.DCSUMMARY ---
Discharge Summary
Discharge Data
Date of Admission: 07/02/25
Date of Discharge: 07/05/25
-
Pending Results: No
Hospital Course
65yo M with PMHx of HLD, hypothyroidism, DM, Hx of clits in Oct 2024 came with abrupt onset of pulsatile abdominal pain with nausea, mostly in RUQ and epigastrium during his breakfast, similar to the feeling he had on last admission. Still was not
able to do colonoscopy since last dmission 2/2 few re-scheduling. CT abd showed possible mild colitis in hepatic flexure and transverse colon. Patient also smoking marijuana daily for many years. Immediate postprandial pain and nausea - complicated
with slow gastric empting with semaglutide and cannabis use. GI recommended outpatient colonoscopy and EGD as previously planned with . PAtient able to tolerate diet without pain on the day of D/C. Medically stable for d/c home. Rybelsis
stopped upon d/c
I have spent at least 36min reviewing chart, test results, communication with consultants and providing direct patient care
Patient was managed for:
#Colitis unlikely. Probably foodborne illness
#DM type 2 with unspecified complications
#L adrenal mass on CT
#Hypothyroidism
#Essential HTN
#ASCVD
#GERD
#HLD
Discharge Plan
-
Patient Disposition: Home (Routine Discharge)
Discharge Diagnosis/Procedures: colitis
Diet: No restrictions and Low Residue
Driving Restrictions: As prior to admission
Referrals:
Viktor Hanson, [Active, Gastroenterology] - in less than 1 week
Referral Note: schedule colonoscopy and EGD
Flaquito Urbano MD [Family Provider, [facility]]
Prescriptions:
Continued
Januvia 100 mg Tablet
100 mg PO DAILY
levothyroxine 175 mcg Tablet
175 mcg PO DAILY@0415
simvastatin 10 mg Tablet
10 mg PO HS
Patient Comments:
pt does not know dose
aspirin 81 mg Tablet,Delayed Release (Dr/Ec)
81 mg PO HS
metformin 500 mg Tablet Extended Release 24 Hr
1,000 mg PO BID@0800,1700
Patient Comments:
pt does not know dose
glipizide 5 mg Tablet
5 mg PO BID@0800,1700
Patient Comments:
pt does not know dose
icosapent ethyl [Vascepa] 1 gram Capsule
2 g PO BID@0800,1700
Patient Comments:
pt does not know dose
Jardiance 25 mg Tablet
25 mg PO DAILY
omeprazole 40 mg Capsule,Delayed Release(Dr/Ec)
40 mg PO DAILY@0415
pioglitazone 45 mg Tablet
45 mg PO DAILY
gfoqeaevoeqw-bcquhqsr-jboffr Tablet
1 tab PO HS
Discontinued
Rybelsus 14 mg Tablet
14 mg PO DAILY@0515
Patient Comments:
pt does not know dose
Discharge Orders:
Discharge Patient (As Directed); Ordered 07/05/25
Ordered By: Carlos Manuel Taylor
Discharge Date and Time
Print Language: PORTUGUESE
--- NOTE | 2025-07-08 10:50 | PN.CDI ---
Addendum entered and electronically signed by Carlos Manuel Taylor MD 07/08/25 12:59:
No further updates, no 'gastroparesis' proven
Original Note:
CDI
- -
CDI:
Physician Documentation Request
Admit Date: 07/02/25 17:49
Dear Doctor Claudia,
Patient admitted with nausea and vomiting.
07/05 PN, 'Colitis unlikely. Probably foodborne illness...Immediate postprandial pain and nausea - complicated with slow gastric empting with semaglutide and cannabis use...Unlikely infectious since no diarrhea and afebrile....DM type 2 with
unspecified complications...Hold Semaglutide.'
After careful study, please provide in your note the likely etiology of the nausea and vomiting:
Gastroparesis due to DM2 and Semaglutide/ Cannabis use
Gastroparesis due to Semaglutide/ Cannabis use only
Food poisoning/ Foodborne illness only
Other
Use of terms such as suspected, likely, concern for, or probable (associated with a specific diagnosis that is being evaluated, monitored, or treated as if it exists) are acceptable and can be coded in the inpatient setting, when documented at the
time of discharge.
Thank you,
Trudy CARVER,RN,CCDS
CDI Specialist
Available via [place] text
Please use your independent medical judgment in providing your response.
== END 2025-07-05 10:12 | disposition home or self-care (01) | DRG 392 ==
LOC: 3 WEST ACU 17:49
PROVIDERS: Emergency Medicine; Registered Nurse; ADMITTING PHYSICIAN Internal Medicine; ATTENDING PHYSICIAN Internal Medicine; CONSULT PHYSICIAN Internal Medicine Gastroenterology; EMERGENCY PHYSICIAN Emergency Medicine; FAMILY PHYSICIAN Family Medicine
DX: A05.9 Bacterial foodborne intoxication, unspecified (principal); E87.20 Acidosis, unspecified; E27.9 Disorder of adrenal gland, unspecified; E11.9 Type 2 diabetes mellitus without complications; E03.9 Hypothyroidism, unspecified; K21.9 Gastro-esophageal reflux disease without esophagitis; N28.1 Cyst of kidney, acquired; K22.70 Barrett's esophagus without dysplasia; E86.0 Dehydration; E78.00 Pure hypercholesterolemia, unspecified; I10 Essential (primary) hypertension; I25.10 Atherosclerotic heart disease of native coronary artery without angina pectoris; F12.90 Cannabis use, unspecified, uncomplicated; K44.9 Diaphragmatic hernia without obstruction or gangrene; Z79.890 Hormone replacement therapy; Z79.84 Long term (current) use of oral hypoglycemic drugs; Z79.82 Long term (current) use of aspirin; Z87.891 Personal history of nicotine dependence; Z79.85 Long-term (current) use of injectable non-insulin antidiabetic drugs
CPT/HCPCS: 74177; 76705; 80048; 80053; 81003; 81015; 82962; 83036; 83605; 83690; 85025; 85027; 87045; 87046; 87077; 87427; 87798; 89055; 93005; 96361; 96374; 96375; 96376; 99285; Q9967